=== PATIENT | female | born 1945 | race Caucasian/White ===

== ENCOUNTER 2019-10-05 13:21 | Inpatient (IN) ==
[2019-10-05] MEDS ORDERED: ONDANSETRON INJ 2 MG/ML 2 ML VIAL IV PRN (15:43)
[2019-10-05] MEDS ORDERED: ACETAMINOPHEN 325 MG TAB PO PRN (15:43)
[2019-10-05] MEDS ORDERED: MoRPHine SULFATE 2 MG/ML CARP IV PRN (15:43)
[2019-10-05] MEDS ORDERED: MAGNESIUM HYDROXIDE SUSP 30 ML UDC PO PRN (15:43)
[2019-10-05] MEDS ORDERED: ALUMINUM/MAGNESIUM SUSP 30 ML UDC PO PRN (15:43)
[2019-10-05] MEDS ORDERED: POLYETHYLENE (MIRALAX) 17 GM PACK PO PRN (15:43)
[2019-10-05] MEDS ORDERED: NITROGLYCERIN SL 0.4 MG/TAB TAB SL PRN (15:43)
[2019-10-05] MEDS ORDERED: PATIENT'S HEIGHT AND/OR WEIGHT NEEDED SCH (16:00)
[2019-10-05] MEDS ORDERED: Heparin IV Low Dose WITH Bolus IV STA (16:09)
[2019-10-05] MEDS ORDERED: HEPARIN SODIUM/DEXTROSE 25,000 UNITS/500 ML BAG IV SCH (16:15)
[2019-10-05 16:16] LABS: Basophils # (auto) 0.03 K/uL (0-0.2); Basophils % (auto) 0.3 %; Eosinophils # (auto) 0.02 K/uL (0-0.5); Eosinophils % (auto) 0.2 %; Hematocrit (blood only) 45.2 % (37-47); Immature Granulocytes # (auto) 0.02 K/uL (0.00-0.02); Immature Granulocytes % (auto) 0.2 %; Lymphocytes # (auto) 1.98 K/uL (1.2-3.4); Lymphocytes % (auto) 19.8 %; Mean Corpuscular Hemoglobin 29.7 pg (25-34); Mean Corpuscular Volume 89.5 fL (80-100); Mean Platelet Volume 9.5 fL (7.4-10.4); Monocytes # (auto) 0.62 K/uL (0.11-0.59); Monocytes % (auto) 6.2 %; Neutrophils # (auto) 7.33 K/uL (1.4-6.5); Neutrophils % (auto) 73.3 %; Platelet Count 231 K/uL (130-400); RDW Coefficient of Variation 13.5 % (11.5-14.5); Red Blood Count 5.05 M/uL (4.2-5.4)
[2019-10-05 16:27] LABS: INR 1.1 (0.9-1.1); Partial Thromboplastin Time 28.6 Seconds (21.0-31.0); Prothrombin Time 11.2 Seconds (9.0-12.0)
[2019-10-05 16:31] LABS: Mean Corpuscular Hgb Conc 33.2 g/dL (32-36)
[2019-10-05 16:34] LABS: BUN Creatinine Ratio 17.3 (10-20); Calcium 8.7 mg/dl (8.5-10.1); Creatinine Clr Calc Pharmacy 72.4 ml/min; Est GFR (African American) 90.4; Magnesium 2.2 mg/dl (1.8-2.4); Potassium 3.9 mmol/L (3.5-5.1)
[2019-10-05 16:39] LABS: Troponin I 2.04 ng/ml (0-0.045)
--- NOTE | 2019-10-05 16:40 | History & Physical Report ---
Date of Service October 05, 2019 Assessment & Plan (1) NSTEMI (non-ST elevated myocardial infarction): Increasing troponin and dynamic EKG changes with chest pain new at rest this morning. On arrival in [facility] telemetry she is having severity 3/10 chest pain, no change with nitroglycerin given. Improvement with this deep pain with morphine, although she is still having ongoing arm " weakness" and chest pain mainly on palpation. ASA (324mg given at [place]), Plavix 300mg (as discussed with Dr Almodovar) will defer further dosing until after cardiac cath, metoprolol tartrate 25mg PO BID, atorvastatin 40mg PO QPM Started on IV low dose heparin drip with bolus HbA1c and lipid fasting panel in a.m. Consult cardiology - discussed with Dr Almodovar and due to ongoing chest pain patient will be seen tonight although her "deep pain" appears to have resolved with morphine given (2) Costochondritis: Difficult to ascertain NSTEMI pain vs. costochondritis but appears to be having both. In setting of NSTEMI will avoid NSAIDs and she can take acetam inophen currently. (3) Fibromyalgia: On no routine medication for this (4) DVT prophylaxis: Heparin IV drip as above Admission and Anticipated Discharge Date Admission Date: October 05, 2019 History of Present Illness Chief Complaint: Chest pain Primary Care Provider: Avtar Grider Tyesha Santiago is a 74 year old female with no past cardiac history who presents as a direct admission from [facility] ER with chest pain. Difficult to ascertain history from patient due to circumstantial and at times some tangential answers. She appears to be having at least two different types of chest pain but both have been going on since March this year without any significant trauma. She describes a left substernal chest pain made worse with exertion which is relieved with rest, associated with shortness of breath. No radiation but associated bilateral upper arm weakness. Gradually getting worse since March however never had this at rest until today. No associated diaphoresis or nausea. Initially she had chest pain on exertion around 8 AM this morning. However became much more severe and " deep" around 9:30 AM, severity 8/10 at which point it also occurred at rest and did not go away since then. She reports having aspirin and nitroglycerin at [place] but is unsure whether this helped her pain. Nitroglycerin caused neck pain and frontal headache. This pain had been treated as MSK pain by her PCP due to reproducibility of chest pain on exam. She has an additional chest pain and neck pain which is been going on for the same of time. This is worse on palpation. She has ongoing chiropractor treatments for this which appears to be helping. She finds it very difficult to distinguish this pain from more cardiac sounding pain above. However the cardiac pain appears to be a " deeper" pain associated with her arm "weakness" which is different from the pain reproduced on palpation. She went to [place] ER on advice of her family and troponin was elevated at 0.2 therefore transferred to [facility] due to no cardiology cover at [facility]. She is a non-smoker, no diabetes, no known hyperlipidemia, no hypertension. Significant family history of her father having an aortic aneurysm repair. Her mother and father have had heart disease and congestive heart failure although she thinks this started in their 60s. No cough, fever, chills, loss of taste or smell. No known COVID-19 exposure. Allergies Allergy/AdvReac Type Severity Reaction Status Date / Time diclofenac Allergy Unknown Verified 10/05/19 16:50 latex Allergy Unknown Verified 10/05/19 16:50 clarithromycin [From Biaxin] Allergy Throat Verified 10/05/19 16:50 closes shut coal tar [From Laila Oil] Allergy Verified 10/05/19 16:50 doxycycline Allergy Thickening Verified 10/05/19 16:50 of the tongue erythromycin base Allergy Muscle pain Verified 10/05/19 16:50 Iodinated Contrast Media Allergy Hives Verified 10/05/19 16:50 ketoprofen [From Orudis] Allergy Vomiting, Verified 10/05/19 16:50 headache nabumetone [From Relafen] Allergy Verified 10/05/19 16:50 nitrofurantoin Allergy Muscle pain Verified 10/05/19 16:50 promethazine Allergy Verified 10/05/19 16:50 prednisone AdvReac Unknown Verified 10/05/19 16:50 acetaminophen AdvReac Dizziness Verified 10/05/19 16:50 [From Darvocet-N 100] - giddy aspirin [From Percodan] AdvReac Dizziness, Verified 10/05/19 16:50 vomiting cephalexin AdvReac sores in Verified 10/05/19 16:50 mouth codeine AdvReac Dizziness Verified 10/05/19 16:50 fexofenadine [From Rupal-D] AdvReac Restless, Verified 10/05/19 16:50 cannot sleep, cramps oxycodone AdvReac Chest Pain Verified 10/05/19 16:50 Penicillins AdvReac Vomiting, Verified 10/05/19 16:50 dizziness piroxicam AdvReac Shortness Verified 10/05/19 16:50 of breath propoxyphene AdvReac Dizziness Verified 10/05/19 16:50 [From Darvocet-N 100] - giddy pseudoephedrine AdvReac Restless, Verified 10/05/19 16:50 [From Rupal-D] cannot sleep, cramps Sulfa (Sulfonamide AdvReac Vomiting Verified 10/05/19 16:50 Antibiotics) Home Medications Home Medications Medication Instructions Recorded Confirmed Type B Complex 1 tab PO DAILY 10/05/19 10/05/19 History [place]-3 1 tab PO DAILY 10/05/19 10/05/19 History Vitamin D3 5,000 units PO DAILY 10/05/19 10/05/19 History acetaminophen 325 mg PO QID PRN 10/05/19 10/05/19 History calcium lactate 2 tab PO DAILY 10/05/19 10/05/19 History cyclobenzaprine 10 mg PO Q8H PRN 10/05/19 10/05/19 History Past Med/Surg History Medical History Arthritis Chronic sinusitis Fibromyalgia History of bladder cancer 10-15 years ago Kidney stones Surgical History History of appendectomy 38 yo History of cholecystectomy 38 yo History of tonsillectomy Family History Father Heart disease Myocardial infarction Onset in 60s Mother Heart disease Onset in 60s, CHF Social History Preferred Language: Mauritanian Communication Ability: Effective Rn Assessment Required: No Beliefs That Will Affect Care: None marital status: Current Living Situation: Family current occupational status: retired Other Information That Helps Us Care for You: No Feels Safe at Home: Yes Safety Concerns: Feels Safe At This Time Smoking Status: Never smoker Hx Alcohol Use: No Hx Substance Use: No Review of Systems Review of Systems: All systems reviewed & are unremarkable except as noted in HPI & below Physical Exam Constitutional: well developed and + obese; + not well nourished and no acute distress Eyes: PERRL, conjunctivae normal, anicteric sclerae ENMT: external ear and nose normal, oropharynx normal Neck: trachea midline, no thyromegaly Respiratory: normal respiratory effort, lungs clear to auscultation Cardiovascular: Rate/Rhythm: regular rate and regular rhythm Heart Sounds: no murmur Extremities: normal capillary refill and + pedal edema (trace b/l equal); no calf tenderness Gastrointestinal (Abdomen): normal bowel sounds, soft, nontender, no hepatosplenomegaly Musculoskeletal: no cyanosis or clubbing, extremities motor strength 5/5 Skin: no rashes, warm and dry Neurologic: moves all extremities and awake; no focal motor deficits and not confused Motor/Sensory: no sensory deficit Psychiatric: A+Ox3, euthymic affect Genitourinary: no CVA tenderness Lymphatic: no cervical or axillary lymphadenopathy Results & Data Results & Data ([facility]) Diagnostic Findings XR chest 1V portable IMPRESSION: Negative chest. ECG Indication: chest pain Rate (beats per minute): 80 Findings: + acute ischemic change Comparison ECG Date: from Change: the following changes noted (more prominant TWI present in anterolateral leads) Code Status & VTE Plan Code Status DNR/DNI as discussed with the patient with son present VTE Prophylaxis Plan VTE Prophylaxis will be ordered: Yes Critical Care Time Critical Care Time: Yes Total Critical Care Time: 45 Patient has a life-threatening condition. Ongoing chest pain requiring ongoing management with multiple re-evaluations and ongoing discussions with cardiology. PG Care Time/CCT Total # of Minutes Spent Total Time Spent with Patient: Total time spent is greater than 50% in coordination of care (as documented) at patient's floor/unit and/or counseling patient: Critical Care Time: Yes Total Critical Care Time: 45 Coding Level of Care Code 19029 Initial Inpt Care Lvl 3 Diagnoses NSTEMI (non-ST elevated myocardial infarction) I21.4 Costochondritis M94.0 Fibromyalgia M79.7 DVT prophylaxis Z29.9 Additional Codes Critical Care Time - Critical Care Time: Yes ([id number])
[2019-10-05] MEDS ORDERED: NITROGLYCERIN SL 0.4 MG/TAB TAB ONE (16:41)
[2019-10-05] MEDS ORDERED: METOPROLOL TARTRATE 25 MG TAB PO STA (16:59)
[2019-10-05] MEDS ORDERED: HEPARIN IV BOLUS 4,000 UNITS in SYRINGE 0 ML IV ONE (17:00)
[2019-10-05] MEDS: PATIENT'S ALLERGY INFO NEEDS ENTERED SCH (17:33)
--- NOTE | 2019-10-05 17:44 | XRay Report ---
XR chest 1V portable CLINICAL HISTORY: Chest pain pain COMPARISON STUDY: No previous studies for comparison. FINDINGS: The bones soft tissues and hemidiaphragms are normal. The cardiomediastinal silhouette is n ormal. The lungs are clear. The pulmonary vasculature is normal. IMPRESSION: Negative chest. ACT 112: Negative or not required by law. The above report was generated using voice recognition software. It may contain grammatical, syntax or spelling errors. Electronically signed by: Glen Ward M.D. 10/05/2019 5:43 PM
[2019-10-05] MEDS ORDERED: CLOPIDOGREL BISULFATE 300 MG TAB PO STA (18:48)
[2019-10-05] MEDS ORDERED: lisinopriL 5 MG TAB PO ONE (20:42)
--- NOTE | 2019-10-05 20:51 | Cardiology Consultation ---
Date of Consultation October 05, 2019 Assessment & Plan (1) NSTEMI (non-ST elevated myocardial infarction): (2) Hypertension: ASSESSMENT/PLAN: 1. NSTEMI: She has elevated troponins, abnormal ECG, and progressively worsening anginal symptoms. We discussed the diagnosis. Continue heparin drip. Continue aspirin 81 mg daily. Plavix 300 mg x1 was recommended and given by hospitalist service. Agree with high-intensity statin therapy. Agree with beta-jennifer. Given elevated blood pressure will also add ELIZABETH-inhibitor. NPO after midnight for cardiac catheterization. Risks and benefits were discussed with her. She was made aware that CT surgery is not available at this facility. She is agreeable to undergo diagnostic coronary angiography and PCI, if deemed appropriate. Echocardiogram pending. 2. Hypertension: She does not have a formal diagnosis of hypertension but her blood pressure has been elevated here, currently more significantly. Will add lisinopril 5 mg daily to her regimen, especially given her presentation of STEMI. 3. Disposition: Cardiology will continue to follow. Patient care has been discussed with Dr. Flores, of the admitting service. Highly complex medical issues. Thank you for allowing me to participate in the care of your patient. Please call for any other questions or concerns. Sincerely, Mustapha Almodovar M.D. History of Present Illness Reason for Consultation: NSTEMI Requesting Physician: Dr. Flores Attending Physician: Les Hale, History of Present Illness Ms. Santiago is a pleasant 74-year-old female with a history significant for fibromyalgia and bladder cancer status post resection who was transferred here from [facility] for chest discomfort and abnormal troponin. She states that for several months, probably back in March, she has been experiencing intermittent exertional intrascapular tightness with bilateral chest pain that can radiate to her shoulders and bilateral arms. This is also accompanied by shortness of breath at times. The symptoms have been worsening to the point where even walking around her house now causes symptoms. This morning when she woke up she developed symptoms walking to her kitchen which then subsided with rest. She then sat down to watch the news and symptoms for the first time occurred at rest. She called EMS and was instructed to take aspirin 81 mg times for which she did. EMS then gave her nitroglycerin which improved her pain but caused a headache symptoms eventually resolved but then again occurred. While here, she was given more nitroglycerin and also morphine. She is no longer experiencing these anginal symptoms. She admits that she has other pains that she has had chronically related to fibromyalgia but assures me that she has no further symptoms currently similar to the symptoms that she has been experiencing with exertion and then once again this morning while at rest. She denies syncope, near-syncope, palpitations, edema, or bleeding such as melena, hematochezia, or hematuria. She states that she has borderline lipid issues but has chosen to not take statin therapy. She sees her PCP regularly. Review of systems: As above. Review of systems otherwise negative/unremarkable. Family history: Father in his 70s. He had a AAA. Mother had CHF and in her 80s. No known premature CAD. Social history: She denies tobacco, alcohol, or drug abuse. She is and he has since . She has a son and a daughter, both of which live with her. 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 She is unaccompanied today. Allergies Allergy/AdvReac Type Severity Reaction Status Date / Time diclofenac Allergy Unknown Verified 10/05/19 16:50 latex Allergy Unknown Verified 10/05/19 16:50 clarithromycin [From Biaxin] Allergy Throat Verified 10/05/19 16:50 closes shut coal tar [From Laila Oil] Allergy Verified 10/05/19 16:50 doxycycline Allergy Thickening Verified 10/05/19 16:50 of the tongue erythromycin base Allergy Muscle pain Verified 10/05/19 16:50 Iodinated Contrast Media Allergy Hives Verified 10/05/19 16:50 ketoprofen [From Orudis] Allergy Vomiting, Verified 10/05/19 16:50 headache nabumetone [From Relafen] Allergy Verified 10/05/19 16:50 nitrofurantoin Allergy Muscle pain Verified 10/05/19 16:50 promethazine Allergy Verified 10/05/19 16:50 prednisone AdvReac Unknown Verified 10/05/19 16:50 acetaminophen AdvReac Dizziness Verified 10/05/19 16:50 [From Darvocet-N 100] - giddy aspirin [From Percodan] AdvReac Dizziness, Verified 10/05/19 16:50 vomiting cephalexin AdvReac sores in Verified 10/05/19 16:50 mouth codeine AdvReac Dizziness Verified 10/05/19 16:50 fexofenadine [From Rupal-D] AdvReac Restless, Verified 10/05/19 16:50 cannot sleep, cramps oxycodone AdvReac Chest Pain Verified 10/05/19 16:50 Penicillins AdvReac Vomiting, Verified 10/05/19 16:50 dizziness piroxicam AdvReac Shortness Verified 10/05/19 16:50 of breath propoxyphene AdvReac Dizziness Verified 10/05/19 16:50 [From Darvocet-N 100] - giddy pseudoephedrine AdvReac Restless, Verified 10/05/19 16:50 [From Rupal-D] cannot sleep, cramps Sulfa (Sulfonamide AdvReac Vomiting Verified 10/05/19 16:50 Antibiotics) Home Medications Home Medications Medication Instructions Recorded Confirmed Type B Complex 1 tab PO DAILY 10/05/19 10/05/19 History [place]-3 1 tab PO DAILY 10/05/19 10/05/19 History Vitamin D3 5,000 units PO DAILY 10/05/19 10/05/19 History acetaminophen 325 mg PO QID PRN 10/05/19 10/05/19 History calcium lactate 2 tab PO DAILY 10/05/19 10/05/19 History cyclobenzaprine 10 mg PO Q8H PRN 10/05/19 10/05/19 History Patient History Medical History Arthritis Chronic sinusitis Fibromyalgia History of bladder cancer 2009 s/p resection Kidney stones Surgical History History of appendectomy 38 yo History of cholecystectomy 38 yo History of tonsillectomy Family History (Updated 10/05/19 @ 20:49 by Alejandro Almodovar MD) Father AAA (abdominal aortic aneurysm) Mother Heart failure Social History Preferred Language: Greek Communication Ability: Effective Gift Wrapper Required: No Beliefs That Will Affect Care: None marital status: Current Living Situation: Family current occupational status: retired Other Information That Helps Us Care for You: No Feels Safe at Home: Yes Safety Concerns: Feels Safe At This Time Smoking Status: Never smoker Hx Alcohol Use: No Hx Substance Use: No Physical Exam Physical Exam: Gen.: No acute distress. Alert and oriented. HEENT: Anicteric sclera. Neck: No JVD. No bruits. Normal carotid upstrokes bilaterally. Cardiac: PMI was nonpalpable. No ventricular heave. Regular rate and rhythm. Normal S1-S2. No murmurs, rubs, or gallops. Pulmonary: Clear to auscultation bilaterally without wheezes, rales, or rhonchi. Abdomen: Soft, nontender, nondistended, with normoactive bowel sounds. No bruits noted. Extremities: 2+ radial pulses bilaterally. 2+ posterior tibialis pulses bilaterally. No edema or cyanosis. Psychiatric: Affect appears appropriate. Chest: Her presenting chest discomfort is not reproducible on exam. Results & Data ([facility]) Vital Signs (Past 12 Hours) Vital Signs Temp Pulse Resp BP BP Pulse Ox 10/05/19 19:48 36.6 C 65 16 187/99 H 94 10/05/19 18:13 36.7 C 82 14 127/74 95 10/05/19 15:48 36.9 C 90 18 144/79 H 92 Laboratory Results Laboratory Results - last 24 hr 10/05/19 10/05/19 10/05/19 15:57 15:57 16:03 WBC 10.00 RBC 5.05 Hgb 15.0 Hct 45.2 MCV 89.5 MCH 29.7 MCHC 33.2 RDW Std Deviation 44.0 RDW Coeff of Marcelino 13.5 Plt Count 231 MPV 9.5 Immature Gran % (Auto) 0.2 Neut % (Auto) 73.3 Lymph % (Auto) 19.8 Sevier % (Auto) 6.2 Eos % (Auto) 0.2 Baso % (Auto) 0.3 Neut # (Auto) 7.33 H Lymph # (Auto) 1.98 Sevier # (Auto) 0.62 H Eos # (Auto) 0.02 Baso # (Auto) 0.03 Immature Gran # (Auto) 0.02 PT 11.2 INR 1.1 APTT 28.6 PTT Ratio 1.0 Sodium 139 Potassium 3.9 Chloride 108 H Carbon Dioxide 25 Anion Gap 6.0 BUN 13 Creatinine 0.75 Est Cr Clr Drug Dosing 72.4 Est GFR ( Amer) 90.4 Est GFR (Non-Af Amer) 78.0 BUN/Creatinine Ratio 17.3 Glucose 93 Calcium 8.7 Magnesium 2.2 Troponin I 2.040 H* 10/05/19 20:17 WBC RBC Hgb Hct MCV MCH MCHC RDW Std Deviation RDW Coeff of Marcelino Plt Count MPV Immature Gran % (Auto) Neut % (Auto) Lymph % (Auto) Sevier % (Auto) Eos % (Auto) Baso % (Auto) Neut # (Auto) Lymph # (Auto) Sevier # (Auto) Eos # (Auto) Baso # (Auto) Immature Gran # (Auto) PT INR APTT PTT Ratio Sodium Potassium Chloride Carbon Dioxide Anion Gap BUN Creatinine Est Cr Clr Drug Dosing Est GFR ( Amer) Est GFR (Non-Af Amer) BUN/Creatinine Ratio Glucose Calcium Magnesium Troponin I Pending Diagnostic Findings ECG personally reviewed: ECG 10/05/2019 at 7:51 p.m.: NSR 64 bpm. Inferior infarct. Anterior T-wave inversion. ECG 10/05/2019 at 4:05 p.m.: NSR 80 bpm. Anterior T-wave inversion. Inferior infarct. Chest x-ray 10/05/2019: No acute findings per Radiology. Clear lungs. Telemetry personally reviewed: Sinus rhythm. No arrhythmia. Medications Administered Current Inpatient Medications Acetaminophen (Tylenol) 650 mg PO Q4H PRN PRN Reason: Pain or Fever Stop: 11/04/19 15:42 Al Hydrox/Mg Hydrox/Simethicone (Maalox) 15 ml PO Q4H PRN PRN Reason: Dyspepsia Stop: 11/04/19 15:42 Aspirin (Ecotrin Ectab) 81 mg PO QAM [facility] Stop: 11/05/19 08:59 Atorvastatin Calcium (Lipitor) 40 mg PO QPM [facility] Stop: 11/04/19 20:59 Last Admin: 10/05/19 20:45 Dose: 40 mg Documented by: Heparin Sodium/Dextrose (Heparin Sodium/Dextrose) 25,000 units in 500 mls @ 17 mls/hr IV .Q24H [facility]; Protocol Stop: 11/04/19 16:14 Last Titration: 10/05/19 19:01 Dose: 850 units/hr, 17 mls/hr Documented by: Lisinopril (Zestril) 5 mg PO QAM [facility] Stop: 11/05/19 08:59 Magnesium Hydroxide (Milk Of Magnesia) 30 ml PO Q12H PRN PRN Reason: Constipation Stop: 11/04/19 15:42 Metoprolol Tartrate (Lopressor) 25 mg PO BID [facility] Stop: 11/05/19 08:59 Morphine Sulfate (Morphine Sulfate) 2 mg IV Q30M PRN PRN Reason: Chest Pain Stop: 10/19/19 15:42 Last Admin: 10/05/19 17:23 Dose: 2 mg Documented by: Nitroglycerin (Nitrostat) 0.4 mg SL UD PRN PRN Reason: Chest Pain Stop: 11/04/19 15:42 Ondansetron HCl (Zofran) 4 mg IV Q6H PRN PRN Reason: Nausea Stop: 11/04/19 15:42 Last Admin: 10/05/19 17:24 Dose: 4 mg Documented by: Polyethylene Glycol (Miralax Powder Packet) 17 gm PO DAILY PRN PRN Reason: Constipation Stop: 11/04/19 15:42 PG Care Time/CCT Total # of Minutes Spent Total Time Spent with Patient: Total time spent is greater than 50% in coordination of care (as documented) at patient's floor/unit and/or counseling patient: Coding Level of Care Code 49205 Initial Inpt Care Lvl 3 Diagnoses NSTEMI (non-ST elevated myocardial infarction) I21.4 Hypertension I10
[2019-10-05] MEDS ORDERED: ATORVASTATIN 40 MG TAB PO SCH (21:00)
[2019-10-05 23:08] LABS: Partial Thromboplastin Ratio 1.4; Partial Thromboplastin Time 39.5 Seconds (21.0-31.0)
[2019-10-05] MEDS ORDERED: HEPARIN IV BOLUS 4,500 UNITS in SYRINGE 0 ML IV ONE (23:45)
[2019-10-06 06:33] LABS: Basophils # (auto) 0.03 K/uL (0-0.2); Basophils % (auto) 0.3 %; Eosinophils # (auto) 0.13 K/uL (0-0.5); Eosinophils % (auto) 1.5 %; Hematocrit (blood only) 43.5 % (37-47); Hemoglobin 13.9 g/dL (12.0-16.0); Immature Granulocytes # (auto) 0.02 K/uL (0.00-0.02); Immature Granulocytes % (auto) 0.2 %; Lymphocytes # (auto) 3.18 K/uL (1.2-3.4); Lymphocytes % (auto) 35.9 %; Mean Corpuscular Hemoglobin 28.8 pg (25-34); Mean Corpuscular Volume 90.1 fL (80-100); Mean Platelet Volume 9.5 fL (7.4-10.4); Monocytes # (auto) 0.61 K/uL (0.11-0.59); Monocytes % (auto) 6.9 %; Neutrophils % (auto) 55.2 %; Platelet Count 223 K/uL (130-400); RDW Coefficient of Variation 13.7 % (11.5-14.5); RDW Standard Deviation 45.6 fL (36.4-46.3); Red Blood Count 4.83 M/uL (4.2-5.4); White Blood Count 8.87 K/uL (4.8-10.8)
[2019-10-06 06:46] LABS: Calcium 8.5 mg/dl (8.5-10.1); Creatinine Clr Calc Pharmacy 70.5 ml/min; Est GFR (African American) 87.5; Est GFR (Non-African American) 75.5; Potassium 3.8 mmol/L (3.5-5.1)
[2019-10-06 06:52] LABS: Partial Thromboplastin Ratio 2.1; Troponin I 1.58 ng/ml (0-0.045)
--- NOTE | 2019-10-06 06:58 | Electrocardiogram Report ---
Test Reason : Blood Pressure : / mmHG Vent. Rate : 080 BPM Atrial Rate : 080 BPM P-R Int : 170 ms QRS Dur : 080 ms QT Int : 348 ms P-R-T Axes : 047 -29 -14 degrees QTc Int : 401 ms Normal sinus rhythm Minimal voltage criteria for LVH, may be normal variant ( R in aVL ) Inferior infarct , age undetermined T wave abnormality, consider anterior ischemia Abnormal ECG No previous ECGs available Confirmed by Alejandro Almodovar ([id number]) on 10/06/2019 6:58:23 AM Referred By: NO PCP Confirmed By:Alejandro Almodovar
[2019-10-06 07:10] LABS: Partial Thromboplastin Time 57.5 Seconds (21.0-31.0)
[2019-10-06 07:34] LABS: Estimated Average Glucose 117 mg/dl; Hemoglobin A1C 5.7 % (4.5-5.6)
--- NOTE | 2019-10-06 07:42 | Hospitalist Progress Note ---
Date of Service October 06, 2019 Assessment & Plan (1) NSTEMI (non-ST elevated myocardial infarction): Increasing troponin, Dynamic EKG changes, chest pain ASA (324mg given at [place]), Plavix 300mg, Dr Almodovar /Dr Small performed LHC with intervention to LAD. CX, RCA, metoprolol tartrate 25mg PO BID, atorvastatin 40mg PO QPM Started on IV heparin drip prior to procedure will be on atorvastatin 80 (2) Costochondritis: Difficult to ascertain NSTEMI pain vs. costochondritis but appears to be having both. In setting of NSTEMI will avoid NSAIDs and she can take acetaminophen currently. (3) Fibromyalgia: On no routine medication for this (4) DVT prophylaxis: Heparin IV drip as above (5) Dyslipidemia: (6) CAD (coronary artery disease): (7) Hypertension: She does not have a formal diagnosis of hypertension but her blood pressure was initially elevated while here. Blood pressure has been well controlled after initiation of beta-jennifer and ELIZABETH-inhibitor. Continue these medications. Admission and Anticipated Discharge Date Admission Date: October 05, 2019 Subjective Patient seen post procedure she was in no particular distress Review of Systems Review of Systems: No continued distress no headache, blurry or double vision no speech or swallowing issues no recurrent chest pain, pressure or palpitations no shortness of breath, cough or wheezes no abdominal pain, nausea or vomiting, diarrhea or constipation no dysuria, hematuria or frequency no focal joint pain or swelling no back pain, CVA tenderness or radicular pain no focal signs of weakness or numbness or altered sensation Results & Data Results & Data ([facility]) Vital Signs (Past 12 Hours) Vital Signs Temp Pulse Pulse Resp BP Pulse Ox 10/06/19 04:01 98.4 F 72 20 120/64 92 10/06/19 00:26 76 10/05/19 23:45 98.1 F 70 18 120/62 92 10/05/19 19:48 97.9 F 65 16 187/99 H 94 PG Care Time/CCT Total # of Minutes Spent Total Time Spent with Patient: Total time spent is greater than 50% in coordination of care (as documented) at patient's floor/unit and/or counseling patient: Coding Level of Care Code 14693 Subseq Hosp Care Lvl 2 Diagnoses NSTEMI (non-ST elevated myocardial infarction) I21.4 Costochondritis M94.0 Fibromyalgia M79.7 DVT prophylaxis Z29.9 Dyslipidemia E78.5 CAD (coronary artery disease) I25.10 Hypertension I10
[2019-10-06] MEDS: ASPIRIN 81 MG ECTAB PO SCH (08:32)
[2019-10-06] MEDS: METOPROLOL TARTRATE 25 MG TAB PO SCH ×2 (08:32→20:00)
[2019-10-06] MEDS: lisinopriL 5 MG TAB PO SCH (08:33)
[2019-10-06] MEDS ORDERED: NiCARDipine HCL INJ 2.5 MG/ML 10 ML AMP ONE (08:54)
[2019-10-06] MEDS ORDERED: fentaNYL citrate 100 MCG/2 ML VIAL ONE ×3 (08:55→12:42)
[2019-10-06] MEDS ORDERED: MIDAZOLAM HCL 1 MG/ML 2ML VIAL ONE ×3 (08:56→10:48)
[2019-10-06] MEDS ORDERED: NITROGLYCERIN/D5W 100MCG/ML 20ML SYR ONE (08:56)
[2019-10-06] MEDS ORDERED: CLOPIDOGREL BISULFATE 75 MG TAB PO SCH (09:00)
[2019-10-06] MEDS ORDERED: DiphenhydrAMINE HCL 50 MG/ML VIAL ONE (09:34)
[2019-10-06] MEDS ORDERED: methylPREDNISolone 125 MG/2 ML VIAL ONE (09:34)
--- NOTE | 2019-10-06 09:43 | Pre Anesthesia Assessment ---
Date of Service October 06, 2019 Pre Sedation Assessment Vital Signs Temp Pulse Pulse Resp BP BP Pulse Ox 10/06/19 09:07 37.1 C 73 16 136/75 91 10/06/19 07:10 36.6 C 70 16 127/75 92 10/06/19 04:01 36.9 C 72 20 120/64 92 10/06/19 00:26 76 10/05/19 23:45 36.7 C 70 18 120/62 92 10/05/19 19:48 36.6 C 65 16 187/99 H 94 10/05/19 18:13 36.7 C 82 14 127/74 95 10/05/19 15:48 36.9 C 90 18 144/79 H 92 Cardiovascular RRR, no murmur, no edema Respiratory normal respiratory effort, lungs clear to auscultation Pre-Sedation Airway Assessment Smoking Status: Never smoker Short, Thick Neck: Yes Thyromental Distance: < 3.5 Finger Breadths Oral Cavity: + WNL Mallampati Class: III ASA: ASA3 NPO Status Date of Last Intake of Fluids: 10/05/19 Time of Last Intake of Fluids: 22:30 Date of Last Intake of Solid Food: 10/05/19 Time of Last Intake of Solid Foods: 22:30 Procedure Planning Contraindications for Sedation: none Current Medications Reviewed: Yes Notes The planned sedation has been discussed with the patient. Informed Consent was obtained. I have identified the patient, determined the appropriateness of sedation and have assessed the patient immediately prior to the procedure. All medicine(s) and interventions are by my order.
[2019-10-06] MEDS: HEPARIN (PORCINE) 1000 UNIT/ML 10 ML (CATH LAB USE ONLY) ONE ×2 (09:57→12:00)
--- NOTE | 2019-10-06 11:11 | Cardiac Catheterization ---
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 Cardiac Status Clinical evaluation leading to the procedure CAD Presenation: Non STEMI Anginal Classification: CCS IV Heart Failure: No Cardiogenic Shock within 24 Hours: No Cardiac Arrest within 24 Hours: No Imaging Studies Past 6 Months: Yes Stress Studies Past 6 Months: No Standard Exercise Test: No Stress Echocardiogram: No Stress Testing w/SPECT MPI: No Cardiac CTA: No Coronary Anatomy Dominant: Right Left Ventricular Angiography EF (%): n/a Diagnostic Physicians Name: Alejandro Almodovar MD Status: Elective Closure Device Percutaneous Entry Location: Femoral (closure to be determined by interventional cardiology following PCI.) Recommendations: PCI without planned CABG Cardiac Cath Procedure Full Procedure Date October 06, 2019 Pre-Procedure Diagnosis Pre-Procedure Diagnosis: Non STEMI (She has been experiencing worsening exertional intrascapular and chest pain for the past several months. Yesterday, symptoms occurred at rest. She has elevated troponins, anterior T wave inversions, and apical wall motion abnormality on echo.) AUC Score AUC Score: 9 Post-Procedure Diagnosis Post-Procedure Diagnosis: Severe CAD and Elevated Intracardiac Pressures Procedure(s) Performed Procedure(s) Performed: Coronary Angiography, Left Heart Cath and Ultrasound Guided Vascular Access Content Strategy Lead Alejandro Almodovar MD National Account Manager(s) Carly Estimated Blood Loss Estimated Blood Loss: < 25 ml Medication(s) Medication(s): Fentanyl, Lidocaine 1% and Versed Summary of Findings Procedures: 1. Coronary angiography 2. Left heart catheterization 3. Ultrasound guidance for arterial access 4. Moderate sedation Procedural notes: 1. Initial attempts at right radial access were unsuccessful. The right radial artery was easily cannulated with access needle, but despite good blood flow, wire was unable to be sufficiently advanced for sheath placement. The decision was made to use the right femoral artery. Coronary angiography: 1. Left main coronary artery: LMCA without significant CAD. 2. Left anterior descending: Calcifications noted within the proximal to mid LAD. Ostial LAD approximately 50%. Early proximal LAD 95+% with ELOISE II flow. Mid LAD 30%, at the bifurcation of a large D1. Proximal D1 50 to 70%. Small D2. 3. Circumflex: Large caliber vessel. Medium caliber OM1 with ostial 50 to 70%. Mid to distal circumflex extends as a small caliber vessel. Mid circumflex into large OM 2 with diffuse 80% stenosis with ELOISE-3 flow. Left to left collaterals noted filling small vessels in the lateral distribution, probable small OM branches. 4. Right coronary artery: The RCA is large and dominant. Calcifications noted throughout the proximal to mid RCA. Proximal RCA diffuse 50 to 70% stenosis, extending to a focal mid RCA 95% stenosis. Distal RCA diffuse 40%. Large PDA and PL branches without significant CAD. Right to left collaterals noted. ELOISE-3 flow noted throughout the RCA. Left heart catheterization: 1. Left ventriculography was not performed. 2. No significant aortic stenosis. Peak to peak gradient 0 mmHg. 3. Moderately elevated LVEDP; 20 mmHg. Ultrasound guidance for arterial access: 1. The right femoral artery was visualized under ultrasound. Access needle was guided under ultrasound to achieve access, without known complication. Moderate sedation: 1. Sedation start time: 9:48 AM 2. Sedation end time: 10:35 AM Impression: 1. Severe multivessel CAD including proximal LAD with ELOISE II flow (culprit vessel). 2. Severe CAD involving RCA and circumflex/OM. 3. Left to left and right to left collaterals. 4. Moderately elevated left-sided filling pressures. 5. No significant aortic stenosis. Plan: 1. Images were reviewed with interventional cardiology, Dr. Small, who plans on attempting PCI of LAD. 2. Further consideration of PCI of other vessels to be determined. 3. Optimize medical therapy. Hemodynamics Rest Ao:: 79/38 Final Ao: 118/52 LV: 112/2/20 Recommendations Recommendations: PCI without planned CABG Specimens Specimens: None Radiation Exposure (mGy) 758 mGy. Fluoro time 2.3 min. Contrast (mls) 40 ml Procedural Complication(s) None Disposition remained in label cutter for PCI attempt I attest to the content of the Intraoperative Record and any orders documented therein. Any exceptions are noted below. BuildFax Card Cath Procedure Codes Cardiac Catheterization Procedure 1: Cardiovascular Cath Procedures: 04993 Coronaries and LHC (+/-LV) Therapeutic Services & Ancillary Proc Procedure 1: Cardiovascular Tx and Anc Procedures: 20708 Ultrasonic Guidance Vascular Access Moderate Sedation Procedure 1: Sedation/Anesthesia: 39656 Mod Sedation by the same physician;Init15 Min Child Age 5 & Up Procedure 2: Sedation/Anesthesia: 48345 Mod Sedation by the same physician; Ea [id number] Minutes Procedure 3: Sedation/Anesthesia: 22204 Mod Sedation by the same physician; Ea [id number] Minutes PG Care Time/CCT Total # of Minutes Spent Total Time Spent with Patient: Total time spent is greater than 50% in coordination of care (as documented) at patient's floor/unit and/or counseling patient:
[2019-10-06] MEDS ORDERED: HEPARIN (PORCINE) 1000 UNIT/ML 10 ML (CATH LAB USE ONLY) ONE (12:18)
--- NOTE | 2019-10-06 12:30 | Cardiology Progress Note ---
Date of Service October 06, 2019 Assessment & Plan (1) NSTEMI (non-ST elevated myocardial infarction): (2) Dyslipidemia: (3) CAD (coronary artery disease): (4) Hypertension: ASSESSMENT/PLAN: 1. NSTEMI: Did have some rest chest discomfort this morning. We once again discussed cardiac catheterization and she was agreeable. Her son was agreeable. She underwent cardiac catheterization after this morning's visit and was found to have multivessel CAD with plan to undergo PCI of the LAD, and possibly RCA plus or minus circumflex/OM. Continue dual anti-platelet therapy. Continue beta-jennifer. Continue ELIZABETH-inhibitor. Continue high-intensity statin therapy. 2. CAD: Multivessel CAD as noted, including proximal LAD, mid RCA, and mid circumflex/OM. PCI to be attempted of the LAD and possibly other vessels, as per Interventional Cardiology. Continue medical therapy as noted. 3. Hypertension: She does not have a formal diagnosis of hypertension but her blood pressure was initially elevated while here. Blood pressure has been well controlled after initiation of beta-jnenifer and ELIZABETH-inhibitor. Continue these medications. 4. Dyslipidemia: LDL is severely elevated. Will increase atorvastatin to 80 mg daily. She had not been on a statin therapy as an outpatient. 5. Disposition: Cardiology will continue to follow. Patient care communicated with primary hospitalist, Dr. Matias. Admission and Anticipated Discharge Date Admission Date: October 05, 2019 Subjective She was seen this morning at approximately 8:30 a.m.. She had an episode of bilateral chest discomfort this morning that was short- lived but otherwise has not had any further symptoms similar to her angina. She denies syncope, near-syncope, shortness of breath, palpitations, edema, or bleeding. She admits to feeling dizzy. Her son, Brock, was present at the bedside. Review of systems: As above. Physical Exam Physical Exam: Gen.: No acute distress. Alert and oriented. HEENT: Anicteric sclera. Neck: No JVD. Cardiac: No ventricular heave. Regular rate and rhythm. Normal S1-S2. No murmurs, rubs, or gallops. Pulmonary: Clear to auscultation bilaterally without wheezes, rales, or rhonchi. Abdomen: Soft, nontender, nondistended, with normoactive bowel sounds. No bruits noted. Extremities: 2+ radial pulses bilaterally. 2+ posterior tibialis pulses bilaterally. No edema or cyanosis. Psychiatric: Affect appears appropriate. Results & Data ([facility]) Vital Signs (Past 12 Hours) Vital Signs Temp Pulse Pulse Resp BP Pulse Ox 10/06/19 09:07 37.1 C 73 16 136/75 91 10/06/19 07:10 36.6 C 70 16 127/75 92 10/06/19 04:01 36.9 C 72 20 120/64 92 10/06/19 00:26 76 Intake & Output 10/04/19 10/05/19 10/06/19 10/07/19 06:59 06:59 06:59 06:59 Intake Total 407.950 / 407.950 Output Total 450 / 450 Balance -42.050 / -42.050 Weight 94.7 kg Laboratory Results Laboratory Results - last 24 hr 10/05/19 10/05/19 10/05/19 15:57 15:57 16:03 WBC 10.00 RBC 5.05 Hgb 15.0 Hct 45.2 MCV 89.5 MCH 29.7 MCHC 33.2 RDW Std Deviation 44.0 RDW Coeff of Marcelino 13.5 Plt Count 231 MPV 9.5 Immature Gran % (Auto) 0.2 Neut % (Auto) 73.3 Lymph % (Auto) 19.8 Kane % (Auto) 6.2 Eos % (Auto) 0.2 Baso % (Auto) 0.3 Neut # (Auto) 7.33 H Lymph # (Auto) 1.98 Kane # (Auto) 0.62 H Eos # (Auto) 0.02 Baso # (Auto) 0.03 Immature Gran # (Auto) 0.02 PT 11.2 INR 1.1 APTT 28.6 PTT Ratio 1.0 Activ Coag Time Kaolin Sodium 139 Potassium 3.9 Chloride 108 H Carbon Dioxide 25 Anion Gap 6.0 BUN 13 Creatinine 0.75 Est Cr Clr Drug Dosing 72.4 Est GFR ( Amer) 90.4 Est GFR (Non-Af Amer) 78.0 BUN/Creatinine Ratio 17.3 Glucose 93 Estimat Average Glucose Hemoglobin A1c Calcium 8.7 Magnesium 2.2 Troponin I 2.040 H* Triglycerides Cholesterol LDL Cholesterol, Calc VLDL Cholesterol, Calc HDL Cholesterol Cholesterol/HDL Ratio 10/05/19 10/05/19 10/05/19 20:17 22:47 22:47 WBC RBC Hgb Hct MCV MCH MCHC RDW Std Deviation RDW Coeff of Marcelino Plt Count MPV Immature Gran % (Auto) Neut % (Auto) Lymph % (Auto) Kane % (Auto) Eos % (Auto) Baso % (Auto) Neut # (Auto) Lymph # (Auto) Kane # (Auto) Eos # (Auto) Baso # (Auto) Immature Gran # (Auto) PT INR APTT 39.5 H PTT Ratio 1.4 Activ Coag Time Kaolin Sodium Potassium Chloride Carbon Dioxide Anion Gap BUN Creatinine Est Cr Clr Drug Dosing Est GFR ( Amer) Est GFR (Non-Af Amer) BUN/Creatinine Ratio Glucose Estimat Average Glucose Hemoglobin A1c Calcium Magnesium Troponin I 2.840 H* 2.530 H* Triglycerides Cholesterol LDL Cholesterol, Calc VLDL Cholesterol, Calc HDL Cholesterol Cholesterol/HDL Ratio 10/06/19 10/06/19 10/06/19 06:17 06:17 06:17 WBC 8.87 RBC 4.83 Hgb 13.9 Hct 43.5 MCV 90.1 MCH 28.8 MCHC 32.0 RDW Std Deviation 45.6 RDW Coeff of Marcelino 13.7 Plt Count 223 MPV 9.5 Immature Gran % (Auto) 0.2 Neut % (Auto) 55.2 Lymph % (Auto) 35.9 Kane % (Auto) 6.9 Eos % (Auto) 1.5 Baso % (Auto) 0.3 Neut # (Auto) 4.90 Lymph # (Auto) 3.18 Kane # (Auto) 0.61 H Eos # (Auto) 0.13 Baso # (Auto) 0.03 Immature Gran # (Auto) 0.02 PT INR APTT PTT Ratio Activ Coag Time Kaolin Sodium 140 Potassium 3.8 Chloride 107 Carbon Dioxide 27 Anion Gap 6.0 BUN 14 Creatinine 0.77 Est Cr Clr Drug Dosing 70.5 Est GFR ( Amer) 87.5 Est GFR (Non-Af Amer) 75.5 BUN/Creatinine Ratio 18.0 Glucose 109 H Estimat Average Glucose 117 Hemoglobin A1c 5.7 H Calcium 8.5 Magnesium Troponin I 1.580 H* Triglycerides 150 Cholesterol 270 H LDL Cholesterol, Calc 200 VLDL Cholesterol, Calc 30 HDL Cholesterol 40 Cholesterol/HDL Ratio 7 10/06/19 10/06/19 10/06/19 06:17 10:39 11:35 WBC RBC Hgb Hct MCV MCH MCHC RDW Std Deviation RDW Coeff of Marcelino Plt Count MPV Immature Gran % (Auto) Neut % (Auto) Lymph % (Auto) Kane % (Auto) Eos % (Auto) Baso % (Auto) Neut # (Auto) Lymph # (Auto) Kane # (Auto) Eos # (Auto) Baso # (Auto) Immature Gran # (Auto) PT INR APTT 57.5 H* PTT Ratio 2.1 Activ Coag Time Kaolin 120 235 H Sodium Potassium Chloride Carbon Dioxide Anion Gap BUN Creatinine Est Cr Clr Drug Dosing Est GFR ( Amer) Est GFR (Non-Af Amer) BUN/Creatinine Ratio Glucose Estimat Average Glucose Hemoglobin A1c Calcium Magnesium Troponin I Triglycerides Cholesterol LDL Cholesterol, Calc VLDL Cholesterol, Calc HDL Cholesterol Cholesterol/HDL Ratio Diagnostic Findings Telemetry personally reviewed: Sinus rhythm. No arrhythmia. Echocardiogram personally reviewed from 10/06/2019: Preliminary review demonstrated normal left ventricular systolic function. Apical wall motion abnormality. No severe valvular abnormalities noted. Formal review to follow. Following this morning visit, she underwent cardiac catheterization. Cardiac catheterization 10/06/2019: Coronary angiography: 1. Left main coronary artery: LMCA without significant CAD. 2. Left anterior descending: Calcifications noted within the proximal to mid LAD. Ostial LAD approximately 50%. Early proximal LAD 95+% with ELOISE II flow. Mid LAD 30%, at the bifurcation of a large D1. Proximal D1 50 to 70%. Small D2. 3. Circumflex: Large caliber vessel. Medium caliber OM1 with ostial 50 to 70%. Mid to distal circumflex extends as a small caliber vessel. Mid circumflex into large OM 2 with diffuse 80% stenosis with ELOISE-3 flow. Left to left collaterals noted filling small vessels in the lateral distribution, probable small OM branches. 4. Right coronary artery: The RCA is large and dominant. Calcifications noted throughout the proximal to mid RCA. Proximal RCA diffuse 50 to 70% stenosis, extending to a focal mid RCA 95% stenosis. Distal RCA diffuse 40%. Large PDA and PL branches without significant CAD. Right to left collaterals noted. ELOISE-3 flow noted throughout the RCA. Left heart catheterization: 1. Left ventriculography was not performed. 2. No significant aortic stenosis. Peak to peak gradient 0 mmHg. 3. Moderately elevated LVEDP; 20 mmHg. Medications Administered Current Inpatient Medications Acetaminophen (Tylenol) 650 mg PO Q4H PRN PRN Reason: Pain or Fever Stop: 11/04/19 15:42 Al Hydrox/Mg Hydrox/Simethicone (Maalox) 15 ml PO Q4H PRN PRN Reason: Dyspepsia Stop: 11/04/19 15:42 Aspirin (Ecotrin Ectab) [facility] [place] Stop: 11/05/19 08:59 Last Admin: 10/06/19 08:32 Dose: 81 mg Documented by: Atorvastatin Calcium (Lipitor) 80 mg PO QPM [facility] Stop: 11/05/19 20:59 Clopidogrel Bisulfate (Plavix) 75 [facility] [place] Stop: 11/05/19 08:59 Last Admin: 10/06/19 08:32 Dose: 75 mg Documented by: Heparin Sodium/Dextrose (Heparin Sodium/Dextrose) 25,000 units in 500 mls @ 20 mls/hr IV .Q24H [facility]; Protocol Stop: 11/04/19 16:14 Last Titration: 10/05/19 23:17 Dose: 1,000 units/hr, 20 mls/hr Documented by: Lisinopril (Zestril) [facility] [place] Stop: 11/05/19 08:59 Last Admin: 10/06/19 08:33 Dose: 5 mg Documented by: Magnesium Hydroxide (Milk Of Magnesia) 30 ml PO Q12H PRN PRN Reason: Constipation Stop: 11/04/19 15:42 Metoprolol Tartrate (Lopressor) 25 mg PO BID [facility] Stop: 11/05/19 08:59 Last Admin: 10/06/19 08:32 Dose: 25 mg Documented by: Morphine Sulfate (Morphine Sulfate) 2 mg IV Q30M PRN PRN Reason: Chest Pain Stop: 10/19/19 15:42 Last Admin: 10/05/19 17:23 Dose: 2 mg Documented by: Nitroglycerin (Nitrostat) 0.4 mg SL UD PRN PRN Reason: Chest Pain Stop: 11/04/19 15:42 Ondansetron HCl (Zofran) 4 mg IV Q6H PRN PRN Reason: Nausea Stop: 11/04/19 15:42 Last Admin: 10/05/19 17:24 Dose: 4 mg Documented by: Polyethylene Glycol (Miralax Powder Packet) 17 gm PO DAILY PRN PRN Reason: Constipation Stop: 11/04/19 15:42 PG Care Time/CCT Total # of Minutes Spent Total Time Spent with Patient: Total time spent is greater than 50% in coordination of care (as documented) at patient's floor/unit and/or counseling patient: Coding Level of Care Code 62332 Subseq Hosp Care Lvl 3 Diagnoses NSTEMI (non-ST elevated myocardial infarction) I21.4 Dyslipidemia E78.5 CAD (coronary artery disease) I25.10 Hypertension I10
--- NOTE | 2019-10-06 13:03 | Post Anesthesia Assessment ---
Date of Service October 06, 2019 Post Sedation Assessment Vital Signs Temp Pulse Pulse Resp BP BP Pulse Ox 10/06/19 09:07 98.8 F 73 16 136/75 91 10/06/19 07:10 97.9 F 70 16 127/75 92 10/06/19 04:01 98.4 F 72 20 120/64 92 10/06/19 00:26 76 10/05/19 23:45 98.1 F 70 18 120/62 92 10/05/19 19:48 97.9 F 65 16 187/99 H 94 10/05/19 18:13 98.1 F 82 14 127/74 95 10/05/19 15:48 98.4 F 90 18 144/79 H 92 Recovery Score Activity: Moves 4 extremities Respiration: Deep Breath/Cough Circulation: +/-20% PreAnes Value Consciousness: Fully Awake Oxygen Saturation: O2 needed for >90% Discharge Sedation Level of Care: Fast Track Phase II Post Sedation Plan On clinical assessment, the patient appears to have tolerated the sedation without complications. Patient is recovering as anticipated. Patient will continue to be monitored by nursing and may be discharged when sedation discharge criteria are met per below protocol. Upon Completions of procedure up to 15 minutes continue every 5 minute vital signs and the P.A.R. score; then discharge to a Phase I or Fast Track to Phase II per the following guidelines: * Discharge Patient to appropriate Phase II area if PAR is 8 or greater or return to pre- procedure baseline. The post - procedure orders will be as directed. * If PAR score is less than 8 or not return to pre-procedure baseline then patient will follow Phase I monitoring till PAR is reached for Phase II. The Phase I may be done in procedure room or may call to secure a Phase I area. * If naloxone or flumazenil are used for reversal, hold in Phase I for continued monitoring from when last reversal dose was given for a minimum of 60 minutes or longer pending the nurse and/or physician discretion of patient condition before discharge to Phase II. Please call the Sedation Physician to re-evaluate and complete post-note for discharge to Phase II area. Do NOT discharge from procedure sedation or Phase 1 until post- sedation evalu ation note is complete by procedure /sedation MD Sedation Discharge Instructions to be given to the patient at discharge to home.
--- NOTE | 2019-10-06 13:06 | Cardiac Catheterization ---
ACC Data: Diplomatic Officer Cardiac Status Clinical evaluation leading to the procedure CAD Presenation: Non STEMI Anginal Classification: CCS IV Heart Failure: No Cardiogenic Shock within 24 Hours: No Cardiac Arrest within 24 Hours: No Imaging Studies Past 6 Months: Yes Stress Studies Past 6 Months: No Diagnostic Physicians Name: Satish Small MD Status: Elective Closure Device Percutaneous Entry Location: Radial Closure Device: Radial Band Recommendations: PCI without planned CABG PCI Indication: PCI for high risk Non-JOSE ALBERTO Lesion Segment Name: ostial LAD Culprit Artery: Yes Stenosis Prior to Rx (%): 99 Chronic Total Occlusion: No IVUS: No FFR: No Pre-Procedure ELOISE Flow: 2 Previously Treated Lesion: No Lesion Complexity: Non-High/Non-C Lesion Length (mm): 12 Thrombus Present: No Bifurcation Lesion: Yes Guidewire Across Lesion: Stenosis Post-Procedure (%): 0 Post-Procedure ELOISE Flow: 3 Devices(s) Deployed: Yes Yes Lesion #2 Segment Name: mid circumflex Culprit Artery: No Stenosis Prior to Rx (%): 0 Chronic Total Occlusion: No IVUS: No FFR: No Previously Treated Lesion: No Lesion Complexity: Non-High/Non-C Lesion Length (mm): 15 Thrombus Present: No Bifurcation Lesion: No Guidewire Across Lesion: Yes Stenosis Post-Procedure (%): 0 Post-Procedure ELOIES Flow: 3 Devices(s) Deployed: Yes Intraprocedure Events Significant Disection: No Perforation: No Cardiac Cath Procedure Full Procedure Date October 06, 2019 Pre-Procedure Diagnosis Pre-Procedure Diagnosis: Non STEMI (She has been experiencing worsening exertional intrascapular and chest pain for the past several months. Yesterday, symptoms occurred at rest. She has elevated troponins, anterior T wave inversions, and apical wall motion abnormality on echo.) AUC Score AUC Score: 8 Post-Procedure Diagnosis Post-Procedure Diagnosis: Severe CAD and Successful PCI Procedure(s) Performed Procedure(s) Performed: Drug Eluting Stent Telecommunications Operator Satish Small MD Ammunition And Explosives Handler(s) Carly Estimated Blood Loss Estimated Blood Loss: < 25 ml Medication(s) Medication(s): Fentanyl, Heparin, Lidocaine 1%, Nicardipine, Nitroglycerin and Versed Medication(s): Ticagrelor Summary of Findings Indication: High risk NSTEMI Access: 6 Fr right radial artery Catheters: EBU 3.5 guide, JR4 guide Findings: For full details of patient's coronary angiography please see cath report dictated by Dr. Almodovar. Briefly, patient found to have severe multi-vessel disease including a 99% ostial LAD stenosis with ELOISE II flow, 80% mid circumflex and 90% mid RCA steno sis Decision to proceed with PCI. -- PCI -- Antithrombotic therapy: Heparin, ticagrelor Procedure: Left main cannulated with EBU 3.5 guide BMW wire passed across ostial LAD lesion into distal vessel Travel Accommodation Inspector 50 wire placed into distal circumflex Ostial LAD lesion predilated with 2.5 compliant balloon Dilated lesion stented with 3.0 x 12 mm Xience Carlotta Stent post-dilated with 3.5 noncompliant balloon IC vasodilators administered for spasm BMW wire removed from LAD Mid circumflex dilated with 2.5 balloon Dilated mid circumflex lesion stented with 2.5 x 18 mm [place] drug-eluting stent, delivered with the aid of a guideliner Stent postdilated with 2.5 NC balloon Post procedure ELOISE 3 flow in LAD, circumflex, stents well expanded with minimal residual stenosis and no apparent cardiac complications. RCA then cannulated with JR4 guide BMW passed across mid RCA lesion into distal vessel Mid RCA dilated with 2.5 and 3.0 balloons Focal high-grade stenosis dilated appropriately with compliant balloons Earlymid RCA heavily calcified moderate stenosis recalcitrant to compliant balloons, 3.0 angiosculpt and 3.5 NC balloon to high atmospheres. Post balloon inflation concern for vessel dissection and proceeded with stenting. Proximal to mid RCA stented with 3.5 x 38 mm [place] drug-eluting stent Stent progressively postdilated with 4.0 NC balloon Post procedure ELOISE-3 flow. High-grade latemid RCA stenosis well-expanded. Residual 40% underexpansion/stenosis in earlymid segment. Arterial Closure: TR band Summary: 1. Successful PCI of ostial LAD stenosis with single drug-eluting stent (3.0 x 12 Xience Carlotta post-dilated with 3.5 NC). 2. Successful PCI of mid circumflex with single drug-eluting stent (2.5 x 18 mm [place]). 3. PCI of proximal to mid RCA with single drug-eluting stent (3.5 x 38 mm Shin; post-dilated with 4.0 NC. Residual 40% early-mid stenosis). Recommendations: To PCU for continued monitoring Loaded with ticagrelor 180 mg in Diplomatic Officer In the setting of ostial LAD, multivessel disease and underexpanded mid RCA stent recommend indefinite DAPT Continue statin, and ASCVD risk factor modification Consult cardiac Rehab Hemodynamics Rest Ao:: 121/61/86 Final Ao: 151/68/103 LV: -- Recommendations Recommendations: PCI without planned CABG Specimens Specimens: None Radiation Exposure (mGy) 5600 Contrast (mls) 175 Drains Drains: None Anesthesia Moderate Procedural Complication(s) None Disposition PCU I attest to the content of the Intraoperative Record and any orders documented therein. Any exceptions are noted below. [facility] Card Cath Procedure Codes Moderate Sedation Procedure 1: Sedation/Anesthesia: 60124 Mod Sedation by a different physician ;Init15 Min Child Age 5&Up Procedure 2: Sedation/Anesthesia: 14177 Mod Sedation by a different physician;Ea Additional 15 Minutes Stenting Procedure 1: Cardiovascular Stent Procedures: 01197 Perc transcatheter placement of intracoronary stent(s), with ang Procedure 2: Cardiovascular Stent Procedures: 72043 Ea addl branch of a major coronary artery Procedure 3: Cardiovascular Stent Procedures: 72642 Ea addl branch of a major coronary artery PG Care Time/CCT Total # of Minutes Spent Total Time Spent with Patient: Total time spent is greater than 50% in coordination of care (as documented) at patient's floor/unit and/or counseling patient:
[2019-10-06] MEDS ORDERED: TICAGRELOR 90 MG TAB PO ONE (13:07)
[2019-10-06] MEDS ORDERED: SODIUM CHLORIDE 0.9% 1000ML 1,000 ML IV SCH (17:45)
--- NOTE | 2019-10-06 18:59 | XCELERA ---
[id number]
[2019-10-06] MEDS ORDERED: ATORVASTATIN 40 MG TAB PO SCH (21:00)
--- NOTE | 2019-10-06 22:37 | Electrocardiogram Report ---
Test Reason : Blood Pressure : / mmHG Vent. Rate : 064 BPM Atrial Rate : 064 BPM P-R Int : 176 ms QRS Dur : 078 ms QT Int : 400 ms P-R-T Axes : 047 -29 -15 degrees QTc Int : 412 ms Normal sinus rhythm Minimal voltage criteria for LVH, may be normal variant Inferior infarct (cited on or before 05-OCT-2019) T wave abnormality, consider anterior ischemia Abnormal ECG When compared with ECG of 05-OCT-2019 16:05, No significant change was found Confirmed by Alejandro Almodovar ([id number]) on 10/06/2019 10:37:39 PM Referred By: NO PCP Confirmed By:Alejandro Almodovar
[2019-10-07] MEDS: TICAGRELOR 90 MG TAB PO SCH ×2 (02:06→11:50)
[2019-10-07 06:56] LABS: Partial Thromboplastin Ratio 0.9; Partial Thromboplastin Time 25.5 Seconds (21.0-31.0)
[2019-10-07] MEDS: lisinopriL 5 MG TAB PO SCH (08:15)
[2019-10-07] MEDS: ASPIRIN 81 MG ECTAB PO SCH (08:15)
[2019-10-07] MEDS: METOPROLOL TARTRATE 25 MG TAB PO SCH (08:15)
--- NOTE | 2019-10-07 15:55 | Cardiology Progress Note ---
Date of Service October 07, 2019 Assessment & Plan (1) NSTEMI (non-ST elevated myocardial infarction): (2) Dyslipidemia: (3) CAD (coronary artery disease): (4) Hypertension: ASSESSMENT/PLAN: 1. NSTEMI: Doing well s/p multivessel PCI. No further angina. Cardiac rehab recommended on d/c. Continue dual anti-platelet therapy. Continue beta- jennifer. Continue ELIZABETH-inhibitor. Continue high-intensity statin therapy. 2. CAD s/p multivessel PCI: (proximal LAD, mid RCA, and mid circumflex/OM). ASA 81 mg daily indefinitely. Interventional cardiology recommends ticagrelor indefinitely due to residual RCA stenosis due to calcium burden after stent deployment. Continue betablocker, ELIZABETH inhibitor, statin. NTG prn for angina. 3. Hypertension: Blood pressure mildly elevated. Continue new antihypertensive meds and titrate as appropriate. 4. Dyslipidemia: LDL is severely elevated. Continue atorvastatin to 80 mg daily. She had not been on a statin therapy as an outpatient. 5. Disposition: Ok to d/c from cardiac standpoint. She wants to follow up in [place] office, which will be arranged for her. Patient care communicated with primary hospitalist, Dr. Mata. Admission and Anticipated Discharge Date Admission Date: October 05, 2019 Subjective Underwent multivessel PCI yesterday. No angina. Had atypical chest pain in bed for a few minutes early this morning. Has ambulated in room and after our visit, in the hallway (3 laps) without angina. She denies SOB at rest. She said her 3 laps is much more than she could walk prior to admission. No bleeding or cath site bleeding/oozing. No edema, palpitations, or syncope. Her son is at the bedside. ROS: as above. Physical Exam Physical Exam: Gen.: No acute distress. Alert and oriented. HEENT: Anicteric sclera. Neck: No JVD. Cardiac: No ventricular heave. Regular rate and rhythm. Normal S1-S2. No murm urs, rubs, or gallops. Pulmonary: Clear to auscultation bilaterally without wheezes, rales, or rhonchi. Abdomen: Soft, nontender, nondistended, with normoactive bowel sounds. No bruits noted. Extremities: Right femoral cath site is clean, dry and intact without erythema or discharge. Trace lower extremity edema. No cyanosis. Psychiatric: Affect appears appropriate. Chest: Tender bilateral chest near shoulders, reproducing her CP described in HPI. Results & Data ([facility]) Vital Signs (Past 12 Hours) Vital Signs Temp Pulse Resp BP Pulse Ox 10/07/19 12:16 36.7 C 70 18 142/69 H 94 10/07/19 08:25 36.7 C 82 18 146/67 H 94 Laboratory Results Laboratory Results - last 24 hr 10/07/19 06:26 APTT 25.5 PTT Ratio 0.9 Diagnostic Findings Telemetry personally reviewed: sinus rhythm with 11 beat run of atrial tachycardia yesterday evening. ECG personally reviewed: ECG 10/07/19 at 1449: NSR at 71 bpm. Anterior and inferior T wave inversion. Cardiac cath 10/06/19: Coronary angiography: 1. Left main coronary artery: LMCA without significant CAD. 2. Left anterior descending: Calcifications noted within the proximal to mid LAD. Ostial LAD approximately 50%. Early proximal LAD 95+% with ELOISE II flow. Mid LAD 30%, at the bifurcation of a large D1. Proximal D1 50 to 70%. Small D2. 3. Circumflex: Large caliber vessel. Medium caliber OM1 with ostial 50 to 70%. Mid to distal circumflex extends as a small caliber vessel. Mid circumflex into large OM 2 with diffuse 80% stenosis with ELOISE-3 flow. Left to left collaterals noted filling small vessels in the lateral distribution, probable small OM branches. 4. Right coronary artery: The RCA is large and dominant. Calcifications noted throughout the proximal to mid RCA. Proximal RCA diffuse 50 to 70% stenosis, extending to a focal mid RCA 95% stenosis. Distal RCA diffuse 40%. Large PDA and PL branches without significant CAD. Right to left collaterals noted. ELOISE-3 flow noted throughout the RCA. PCI 10/06/19: 1. Successful PCI of ostial LAD stenosis with single drug-eluting stent (3.0 x 12 Xience Carlotta post-dilated with 3.5 NC). 2. Successful PCI of mid circumflex with single drug-eluting stent (2.5 x 18 mm [place]). 3. PCI of proximal to mid RCA with single drug-eluting stent (3.5 x 38 mm Shin; post-dilated with 4.0 NC. Residual 40% early-mid stenosis). PG Care Time/CCT Total # of Minutes Spent Total Time Spent with Patient: Total time spent is greater than 50% in coord ination of care (as documented) at patient's floor/unit and/or counseling patient: Coding Level of Care Code 59181 Subseq Hosp Care Lvl 3 Diagnoses NSTEMI (non-ST elevated myocardial infarction) I21.4 Dyslipidemia E78.5 CAD (coronary artery disease) I25.10 Hypertension I10
[2019-10-07 16:36] LABS: Basophils # (auto) 0.01 K/uL (0-0.2); Basophils % (auto) 0.1 %; Eosinophils # (auto) 0.05 K/uL (0-0.5); Eosinophils % (auto) 0.4 %; Hematocrit (blood only) 42.2 % (37-47); Hemoglobin 13.6 g/dL (12.0-16.0); Immature Granulocytes # (auto) 0.05 K/uL (0.00-0.02); Immature Granulocytes % (auto) 0.4 %; Lymphocytes # (auto) 2.75 K/uL (1.2-3.4); Lymphocytes % (auto) 20.2 %; Mean Corpuscular Hemoglobin 29.1 pg (25-34); Mean Corpuscular Hgb Conc 32.2 g/dL (32-36); Mean Corpuscular Volume 90.2 fL (80-100); Mean Platelet Volume 9.5 fL (7.4-10.4); Monocytes # (auto) 1.32 K/uL (0.11-0.59); Monocytes % (auto) 9.7 %; Neutrophils # (auto) 9.46 K/uL (1.4-6.5); Neutrophils % (auto) 69.2 %; Platelet Count 234 K/uL (130-400); RDW Coefficient of Variation 13.7 % (11.5-14.5); RDW Standard Deviation 45.1 fL (36.4-46.3); Red Blood Count 4.68 M/uL (4.2-5.4); White Blood Count 13.64 K/uL (4.8-10.8)
[2019-10-07 16:55] LABS: BUN Creatinine Ratio 21.1 (10-20); Calcium 8.4 mg/dl (8.5-10.1); Creatinine Clr Calc Pharmacy 54.5 ml/min; Est GFR (African American) 63.8; Est GFR (Non-African American) 55.1; Potassium 3.7 mmol/L (3.5-5.1)
--- NOTE | 2019-10-07 17:31 | Discharge Summary ---
Date of Service October 07, 2019 Admission HPI Per Admitting Provider Tyesha Santiago is a 74 year old female with no past cardiac history who presents as a direct admission from [facility] with chest pain. Difficult to ascertain history from patient due to circumstantial and at times some tangential answers. She appears to be having at least two different types of chest pain but both have been going on since March this year without any significant trauma. She describes a left substernal chest pain made worse with exertion which is relieved with rest, associated with shortness of breath. No radiation but associated bilateral upper arm weakness. Gradually getting worse since March however never had this at rest until today. No associated diaphoresis or nausea. Initially she had chest pain on exertion around 8 AM this morning. However became much more severe and " deep" around 9:30 AM, severity 8/10 at which point it also occurred at rest and did not go away since then. She reports having aspirin and nitroglycerin at [place] but is unsure whether this helped her pain. Nitroglycerin caused neck pain and frontal headache. This pain had been treated as MSK pain by her PCP due to reproducibility of chest pain on exam. She has an additional chest pain and neck pain which is been going on for the same of time. This is worse on palpation. She has ongoing chiropractor treatments for this which appears to be helping. She finds it very difficult to distinguish this pain from more cardiac sounding pain above. However the cardiac pain appears to be a " deeper" pain associated with her arm "weakness" which is different from the pain reproduced on palpation. She went to [facility] on advice of her family and troponin was elevated at 0.2 therefore transferred to [facility] due to no cardiology cover at [facility]. She is a non-smoker, no diabetes, no known hyperlipidemia, no hypertension. Significant family history of her father having an aortic aneurysm repair. Her mother and father have had heart disease and congestive heart failure although she thinks this started in their 60s. No cough, fever, chills, loss of taste or smell. No known COVID-19 exposure. Principal Diagnosis Pt states she feels much improved. She does have some chest pressure laterally, but it is different from the pain she was having prior to her cath. No SOB. No issues with PO. She is ambulating without issue. Pt denies fever, abd pain, n/v/c/d, LE pain or swelling. 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 Pt tells me she had muscle pain and cramping in the past with crestor use. She is tolerating lipitor so far. Discharge Exam Constitutional WD/WN, vitals as above Eyes normal visual stephens by confrontation and + anicteric sclerae Neck normal visual inspection and trachea midline Respiratory normal respiratory effort, lungs clear to auscultation Cardiovascular Rate/Rhythm: regular rate and regular rhythm Gastrointestinal (Abdomen) Inspection/Auscultation: abdomen not distended Percussion/Palpation: abdomen soft; abdomen nontender Musculoskeletal Head/Neck/Chest: normocephalic and head atraumatic Skin no rashes, warm and dry Neurologic awake; not confused Speech / Cognition: normal speech Psychiatric A+Ox3, euthymic affect Discharge Data Allergies Allergy/AdvReac Type Severity Reaction Status Date / Time diclofenac Allergy Unknown Verified 10/05/19 16:50 latex Allergy Unknown Verified 10/05/19 16:50 clarithromycin [From Biaxin] Allergy Throat Verified 10/05/19 16:50 closes shut coal tar [From Laila Oil] Allergy Verified 10/05/19 16:50 doxycycline Allergy Thickening Verified 10/05/19 16:50 of the tongue erythromycin base Allergy Muscle pain Verified 10/05/19 16:50 Iodinated Contrast Media Allergy Hives Verified 10/05/19 16:50 ketoprofen [From Orudis] Allergy Vomiting, Verified 10/05/19 16:50 headache nabumetone [From Relafen] Allergy Verified 10/05/19 16:50 nitrofurantoin Allergy Muscle pain Verified 10/05/19 16:50 promethazine Allergy Verified 10/05/19 16:50 prednisone AdvReac Unknown Verified 10/05/19 16:50 acetaminophen AdvReac Dizziness Verified 10/05/19 16:50 [From Darvocet-N 100] - giddy aspirin [From Percodan] AdvReac Dizziness, Verified 10/05/19 16:50 vomiting cephalexin AdvReac sores in Verified 10/05/19 16:50 mouth codeine AdvReac Dizziness Verified 10/05/19 16:50 fexofenadine [From Rupal-D] AdvReac Restless, Verified 10/05/19 16:50 cannot sleep, cramps oxycodone AdvReac Chest Pain Verified 10/05/19 16:50 Penicillins AdvReac Vomiting, Verified 10/05/19 16:50 dizziness piroxicam AdvReac Shortness Verified 10/05/19 16:50 of breath propoxyphene AdvReac Dizziness Verified 10/05/19 16:50 [From Darvocet-N 100] - giddy pseudoephedrine AdvReac Restless, Verified 10/05/19 16:50 [From Rupal-D] cannot sleep, cramps Sulfa (Sulfonamide AdvReac Vomiting Verified 10/05/19 16:50 Antibiotics) Consultations 10/05/19 16:35 Consult Cardiology Routine 10/06/19 17:32 Consult Cardiac Rehabilitation Routine Procedures Performed Operation Date: 10/06/19 09:00 Actual Procedures p Cineradiography w/Routine Exam - Brandin Small MD s Cath, Left with Cors and Vent - Alejandro Almodovar MD p Drug Eluting Stent SGl Vessel - Brandin Small MD s Drug Eluting Stent each ADDTL Vessel - Brandin Small MD s Ultrasound Vascular Access - Brandin Small MD s Placement Art Occlusive Device - Brandin Small MD Ordered Studies 10/06/19 09:03 CL Cath Imgs for PACS use only Routine Hospital Course (1) NSTEMI (non-ST elevated myocardial infarction): Increasing troponin, Dynamic EKG changes, chest pain Pt was transferred from [facility] for interventional cardiology on 10/04 ASA (324mg given at [place]), Plavix 300mg, Dr Almodovar /Dr Small performed LHC with stents to LAD, mid-circumflex, RCA on 10/05 will be on atorvastatin 80, advised CoQ10 use given need for statin in this setting and hx of statin intolerance Planning for indefinite DAPT with aspirin 81mg and brilinta (2) Costochondritis: Difficult to ascertain NSTEMI pain vs. costochondritis but appears to be having both. In setting of NSTEMI will avoid NSAIDs and she can take acetaminophen currently. (3) Fibromyalgia: On no routine medication for this (4) DVT prophylaxis: Heparin IV drip during admission (5) Dyslipidemia: (6) CAD (coronary artery disease): (7) Hypertension: She does not have a formal diagnosis of hypertension but her blood pressure was initially elevated while here. Blood pressure has been well controlled after initiation of beta-jennifer and ELIZABETH-inhibitor. Continue these medications. Total Time Total Time Spent Total Time Spent (In Minutes): >30 Total Time Includes: Examination of the Patient, Discharge Planning, Medication Reconciliation, Communication With Other Providers and Other Discharge Plan Discharge Items Patient Disposition: Home - Self-Care Reason For Visit: CHEST PAIN Discharge Diagnosis: NSTEMI Activity: As commented below Activity Comment: As discussed with cardiology Non-emergency contact: Primary Care Provider and Freezer Person Call non-emergency contact if: you have any medication questions, your symptoms worsen and your pain is not controlled Follow-up/Referrals: Alejandro Almodovar MD [Physician] - Paramjit Chow MD [Primary Care Provider] - Diet: Heart Healthy Addtl Attending Provider Instructions: ACTIVITY RECOMMENDATIONS: It is common to feel weak and fatigue for a few days. * Do not drive or operate any motorized equipment for the next three days. * Limit stair usage (2 or 3 trips a day only) for the next three days. * Do not lift anything heavier than 10 pounds for the next three days. * Do not engage in vigorous exercise or any sports for the next five days. * You may shower the day after your procedure, but do not immerse the area for three days. Cleanse the site gently with soap and water. SPECIAL CARE INSTRUCTIONS: * You may replace the pressure dressing or band-aid the morning after the procedure. * After your procedure, it is normal to have a small bruise or small lump at the site. Examine your site daily for any change in the bruise or lump, redness, swelling, drainage or numbness. Notify your doctor if any change. BLEEDING: * If there is a small amount of bleeding at the site, lie down and apply firm pressure with a clean cloth for ten minutes. When the bleeding stops, lie quietly keeping the procedure limb straight for six hours. Notify your doctor as soon as possible. * If the bleeding does not stop after ten minutes or if there is a large amount of bleeding or spurting, call 911 immediately. Continue to lie down and hold firm pressure until help arrives. SKIN IRRITATION: * You may experience some redness and/or swelling in the area where radiation was administered. If any skin irritation occurs, please contact your family physician. FOLLOW UP VISIT: 1. Follow up with Dr. Walton in the [facility]iology office within the next few weeks. His office will call you with appointment time/date. Call [phone] with questions or concerns. Addtl Hydraulic Technician Provider Instructions: You mentioned that you have had issues with leg cramping/spasms when using statins (cholesterol medication) in the past. It is important that you continue to take the cholesterol medication due to your heart attack. You should start taking CoQ10 300mg per day. This will help to prevent the cramping/spasms that some people get with statin use. CoQ10 comes in 2 forms: ubiquinOL and ubiquinONE. Ubiquinol is the active and best form to take as it is already ready for your body to use. It will absorb better than ubiquinone. Due to this, ubiquinol can be a bit more expensive than ubiquinone, but it will be more effective for you to take the more expensive version. You can find this at most [employer], [employer], etc. You should take this with some sort of fat for best absorption: dairy products, olive oil, avocados will work for this. Pending Studies at Discharge: No Stand-Alone Forms: [facility], Smoking Cessation Medications and DC Order Prescriptions: New atorvastatin 40 mg Tablet 80 mg PO QPM Qty: 30 RF: 0 aspirin 81 mg Tablet,Delayed Release (Dr/Ec) 81 mg PO QAM Qty: 30 RF: 0 lisinopril [Zestril] 5 mg Tablet 5 mg PO QAM Qty: 30 RF: 0 metoprolol tartrate 25 mg Tablet 25 mg PO BID Qty: 60 RF: 0 Brilinta 90 mg Tablet 90 mg PO BID Qty: 60 RF: 0 Continued B Complex 1 tab PO DAILY RF: 0 acetaminophen 325 mg Tablet 325 mg PO QID PRN (Reason: Pain) RF: 0 [place]-3 1 tab PO DAILY RF: 0 Vitamin D3 5,000 units PO DAILY RF: 0 calcium lactate 648 mg 2 tab PO DAILY RF: 0 cyclobenzaprine 10 mg 10 mg PO Q8H PRN (Reason: Muscle Spasm) RF: 0 Discharge Orders: Discharge Order (Routine); Ordered 10/07/19 Ordered By: Birgit Mata Admission Data Admit Date/Time: 10/05/19 15:44 Attending Provider: Birgit Mata Admit Provider: Les Hale Primary Care Provider: Paramjit Chow Other Providers: Alejandro Almodovar. Other Interventions: Discharge Summary Assessment (RN) Last Done: 10/07/19 16:41 DC Date/Time DO NOT enter until pt leaves facility: 10/07/19 17:12 Coding Level of Care Code D/C Day Management >30 mins Diagnoses NSTEMI (non-ST elevated myocardial infarction) I21.4 Costochondritis M94.0 Fibromyalgia M79.7 DVT prophylaxis Z29.9 Dyslipidemia E78.5 CAD (coronary artery disease) I25.10 Hypertension I10
--- NOTE | 2019-10-08 05:09 | Electrocardiogram Report ---
Test Reason : Blood Pressure : / mmHG Vent. Rate : 071 BPM Atrial Rate : 071 BPM P-R Int : 166 ms QRS Dur : 082 ms QT Int : 392 ms P-R-T Axes : 056 -24 -76 degrees QTc Int : 425 ms Normal sinus rhythm Abnormal ECG When compared with ECG of 05-OCT-2019 19:51, T wave inversion now evident in Inferior leads T wave inversion more evident in Anterolateral leads Confirmed by Alejandro Almodovar ([id number]) on 10/08/2019 5:09:18 AM Referred By: REFERRED SELF Confirmed By:Alejandro Almodovar
== END 2019-10-07 17:12 | disposition home or self-care (01) | DRG 247 ==
LOC: 2W → SUATTDRO 15:44 → 2E 17:12

== ENCOUNTER 2025-01-11 12:02 | Observation (INO) ==
[2025-01-11 12:32] LABS: Hematocrit (blood only) 41.4 % (37.0-47.0); Hemoglobin 13.8 g/dl (12.0-16.0); Immature Granulocytes # (auto) 0.02 K/uL (0.01-0.20); Immature Granulocytes % (auto) 0.3 %; Mean Corpuscular Hemoglobin 28.7 pg (25.0-34.0); Mean Corpuscular Volume 86.1 fL (80.0-100.0); Platelet Count 234 K/uL (130-400); RDW Standard Deviation 41.4 fL (36.4-46.3); Red Blood Count 4.81 M/uL (4.20-5.40); White Blood Count 7.76 K/ul (4.8-10.8)
--- NOTE | 2025-01-11 12:34 | Emergency Department Note ---
Impression & Plan Unstable angina ED Provider Note NAME: JOHN LAMB AGE: 79 SEX: F : 1945 ARRIVES VIA: Ambulance INFORMANT: Patient, EMS ED PROVIDER(S): Devin Oliva DO CHIEF COMPLAINT: chest pain HPI: This is an 79-year-old female with the PMHx of CAD s/p PCI in 2019, hypertension, hyperlipidemia, obesity, fibromyalgia and GERD presenting to [facility] for further evaluation of Chest pain. Patient is accompanied by EMS who provide additional history. EMS reports that the patient has been reporting onset of chest pain with radiation to the shoulder blades and back since 01/05. They report that she was given sublingual nitroglycerin as well as a loading dose of aspirin. She has remained hemodynamically stable. Patient states this feels exactly similar to prior cardiovascular events. She states that today she developed numbness below the knees bilaterally. She states that this concerned her and led to emergency department visit. They deny fever or chills. No cough or congestion. She does endorse shortness of breath associated with her chest pain. They deny abdominal pain, nausea and vomiting. No urinary complaints. No recent changes in bowel movements. Patient denies recent changes in medications or OTC supplements. Patient offers no other complaints, today. ADDITIONAL HISTORY OBTAINED: Per HPI Chronic Medical/Social Conditions Affecting Care: Per HPI PAST MEDICAL HISTORY: See Below PAST SURGICAL HISTORY: See Below FAMILY HISTORY: See Below SOCIAL HISTORY: See Below HOME MEDICATIONS: See Below ALLERGIES: See Below VITALS: See Below PHYSICAL EXAMINATION: GENERAL: Sitting up in bed, alert, well appearing, well nourished, no distress, non-toxic EYE EXAM: normal conjunctiva. PERRL and EOM's grossly intact. OROPHARYNX: no exudate, no erythema, lips, buccal mucosa, and tongue normal and mucous membranes are moist NECK: supple, no nuchal rigidity, no adenopathy, non-tender LUNGS: Clear to auscultation. Normal chest wall mechanics HEART: no murmurs, regular rate, regular rhythm ABDOMEN: abdomen soft, non-tender, no masses, no rebound or guarding. BACK: Back is symmetrical on inspection and there is no deformity, no midline tenderness, no CVA tenderness. No midline TTP or step offs. 5/5 strength in b/l LEs that are neurovascularly intact. 2/4 patellar reflexes bilaterally. EHL strength 5/5 bilaterally. SKIN: no rashes and no bruising UPPER EXTREMITIES: upper extremities are grossly normal. LOWER EXTREMITIES: No pitting edema. NEURO EXAM: Normal sensorium, GCS 15, normal speech, no gross weakness of arms, no gross weakness of legs. No drift. Finger to nose intact. Gross sensation intact. MEDICAL DECISION MAKING: Differential diagnoses includes but not limited to ACS, stable vs unstable angina, dysrhythmia, viral URI, pneumonia, pericarditis, pneumothorax, costochondritis, MSK strain, PE, hypertensive emergency, psychological causes, esophageal reflux, gastritis, DDD,lumbar radiculopathy, acute cord compression, polyneuropathy In summary, this is a 79 year old female who presented with chest pain. Differential as above. Nursing notes and pertinent past medical records reviewed. Vital signs reviewed and the patient is hypertensive but otherwise afebrile and HDS. History and presentation revealed extensive cardiovascular history now with worsening pain over the last few weeks. Acutely worsened today now with extremity paresthesias. Patient's description of the pain as well as her history are concerning for possible aortic dissection. I am also concerned that this could be unstable angina and she has significant coronary artery disease as evidenced by prior cardiac catheterization notes. She had multivessel disease that required PCI. The patient is neurovascularly intact and she is only mildly hypertensive. She does not demonstrate acute CHF or shock like state. Will plan for labs and imaging. I did discuss extensively regarding patient's allergies to contrast which she is not sure. Diagnostics interpreted by me include EKG and cardiac monitoring as listed below: -Cardiac Monitoring: An order was placed for continuous cardiac monitoring. The monitor shows a rate of 50-60s with regular rhythm. -ECG: normal sinus rhythm at a ventricular rate of [address] segment changes to suggest STEMI. Intervals are within normal limits. Patient completed laboratory studies and imaging. CXR independently interpreted by me reveals no evidence of focal consolidation to suggest pna. No large pneumothorax or pleural effusion. Results independently interpreted by me are Normal troponin x 2. No significant leukocytosis or anemia. No electrolyte derangements or kidney dysfunction. The patient was managed with aspirin and sublingual nitroglycerin. given the patient's complaints of chest pain radiating to the back as well as extremity numbness, I am concerned for possible aortic dissection or AAA. She is hemodynamically stable. We proceeded with CTA imaging the following prophylactic steroids and Benadryl. Patient tolerated the contrast well. Patient had CTAs independently reviewed by me showing no evidence of aortic dissection or AAA. She does have heavy coronary artery calcification incidentally noted. I do feel her symptoms are exactly similar to prior. Do feel it is reasonable to admit the patient for telemetry monitoring and repeat echo. Ultimately, the decision was made to admit the patient for unstable angina with concerns for significant coronary artery disease. Given the patient symptoms have been ongoing over the last few weeks, as well as normal troponin levels without ischemic changes on EKG, heparin infusion and bolus was felt to be unnecessary as there may be more risks than benefits in this patient. It was recommended to admit this patient at 1440. I discussed the case with the hospitalist service via telephone/TigerText and they are agreeable to admit the patient to their services by Dr. Menchaca at 1643. Based on the above, including the patient's age, coexisting illnesses, labs, imaging, and exam findings the decision to treat as an inpatient. I discussed the patient with the hospitalist team who recommended admission to their services. They received the medications, treatments, interventions indicated above and their condition remain guarded. I discussed my findings with the patient and their family and they understand and agree with the treatment plan. All patient / family questions were answered to their satisfaction. Consults/Care Managements Discussions: Per MDM ER treatment provided: See above Procedures: none Critical Care: None The chart was completed utilizing [employer] Speech voice recognition software. Grammatical errors, random word insertions, pronoun errors, and incomplete sentences are an occasional consequence of this system due to software limitations, ambient noise, and hardware issues. Any formal questions or concerns about the content, text, or information contained within the body of this dictation should be directly addressed to the physician for clarification. Past Med/Surg History Problem List (Updated 01/11/25 @ 17:57 by Devin Oliva DO) Unstable angina (Acute) History of non-ST elevation myocardial infarction (NSTEMI) GERD (gastroesophageal reflux disease) S/P coronary artery stent placement (09/2019) x3 Osteopenia Prediabetes Hypertension History of bladder cancer (1999) recurrence 2011 Obesity CAD (coronary artery disease) Dyslipidemia Chronic sinusitis Fibromyalgia Arthritis Medical History Hematuria Elevated creatine kinase NSTEMI (non-ST elevated myocardial infarction) Kidney stones Surgical History S/P bladder tumor excision with fulguration (09/25/10) History of tonsillectomy History of cholecystectomy History of appendectomy Family History Father AAA (abdominal aortic aneurysm) Bladder cancer Kidney stones Mother Heart failure Aunt Breast cancer Sister Hypertension Other Ovarian cancer Denies family history of Prostate cancer Myocardial infarction Colorectal cancer Social History Smoking Status: Never smoker Second Hand Exposure: No; Do You Dip or Chew Tobacco: No; Hx Alcohol Use: No Hx Substance Use: No Preferred Language: Stateless Communication Ability: Effective Visual Impairment: No Limitations Hearing Ability: Use of Hearing Aid Head Doffer Required: No Beliefs That Will Affect Care: None marital status: Current Living Situation: Family current occupational status: retired Feels Safe at Home: Yes Childhood Exposure to Second-Hand Smoke: No Diet: regular Diet Comment: regular caffeine: Yes during the past year weight has: remained stable Dental Care, Regularly: Yes Physical Activity Frequency: Daily Seatbelt Use: always Sunscreen Use: Yes Assistive Devices: None Allergies Allergies Allergy/AdvReac Type Severity Reaction Status Date / Time clarithromycin [From Biaxin] Allergy Severe Throat Verified 11/05/24 10:00 closes shut piroxicam Allergy Severe Shortness Verified 11/05/24 10:00 of breath doxycycline Allergy Intermediate Thickening Verified 11/05/24 10:00 of the tongue Iodinated Contrast Media Allergy Intermediate Hives Verified 11/05/24 10:00 coal tar [From Laila Oil] Allergy Unknown Unknown Verified 11/05/24 10:00 diclofenac Allergy Unknown CAN'T Verified 11/05/24 10:00 REMEMBER latex Allergy Unknown CAN'T Verified 11/05/24 10:00 REMEMBER lisinopril Allergy Unknown Unknown Verified 11/05/24 10:00 nabumetone [From Relafen] Allergy Unknown Unknown Verified 11/05/24 10:00 promethazine Allergy Unknown Unknown Verified 11/05/24 10:00 ticagrelor [From Brilinta] Allergy Unknown Unknown Verified 11/05/24 10:00 oxycodone AdvReac Severe Chest Pain Verified 11/05/24 10:00 aspirin [From Percodan] AdvReac Intermediate Dizziness, Verified 11/05/24 10:00 vomiting cephalexin AdvReac Intermediate sores in Verified 11/05/24 10:00 mouth codeine AdvReac Intermediate Dizziness Verified 11/05/24 10:00 erythromycin base AdvReac Intermediate Muscle pain Verified 11/05/24 10:00 fexofenadine [From Rupal-D] AdvReac Intermediate Restless, Verified 11/05/24 10:00 cannot sleep, cramps ketoprofen [From Orudis] AdvReac Intermediate Vomiting, Verified 11/05/24 10:00 headache nitrofurantoin AdvReac Intermediate Muscle pain Verified 11/05/24 10:00 Penicillins AdvReac Intermediate Vomiting, Verified 11/05/24 10:00 dizziness propoxyphene AdvReac Intermediate Dizziness Verified 11/05/24 10:00 [From Darvocet-N 100] - giddy pseudoephedrine AdvReac Intermediate Restless, Verified 11/05/24 10:00 [From Rupal-D] cannot sleep, cramps Sulfa (Sulfonamide AdvReac Intermediate Vomiting Verified 11/05/24 10:00 Antibiotics) prednisone AdvReac Unknown Unknown Verified 11/05/24 10:00 Home Meds Home Medications Medication Instructions Recorded Confirmed omega-3 fatty acids 500 mg capsule 500 mg PO DAILY 12/21/19 01/11/25 cholecalciferol (vitamin D3) 125 125 mcg PO DAILY 05/11/20 01/11/25 mcg (5,000 unit) capsule vitamin B comp and C no.3 15 mg-10 1 cap PO DAILY 09/25/20 01/11/25 mg-50 mg-5 mg-300 mg capsule (B Complex Plus Vitamin C) acetaminophen 325 mg tablet 325 mg PO QID PRN Pain 04/19/24 01/11/25 (Tylenol) prasugrel HCl 10 mg tablet 10 mg PO DAILY 10/29/24 01/11/25 (Effient) Previous Rx's Medication Instructions Recorded aspirin 81 mg tablet,delayed 81 mg PO DAILY #90 tabs 12/31/23 release metoprolol tartrate 25 mg tablet 25 mg PO BID #180 tabs 04/19/24 famotidine 20 mg tablet (Pepcid) 20 mg PO BID PRN acid reflux #60 10/29/24 tabs cyclobenzaprine 5 mg tablet 5 mg PO HS PRN muscle spasm #20 11/05/24 tabs Results & Data (ED) Vital Signs Vital Signs - 24 hr 01/11/25 12:09 01/11/25 12:30 01/11/25 12:32 Temperature 36.8 C Temperature Source Oral Pulse Rate 61 59 L Pulse Rate [Apical] 58 L Pulse Rate from SpO2 Sensor Respiratory Rate 18 19 18 Respiratory Effort / Characteristics Non-Labored Spontaneous Non-Labored Spontaneous Respiratory Depth Normal Normal Respiratory Pattern Regular Blood Pressure 141/75 H 115/67 Blood Pressure [Right Arm] 115/67 Blood Pressure Mean 97 89 Blood Pressure Mean [Right Arm] 83 Blood Pressure Position [Right Arm] Lying Pulse Oximetry 91 94 94 Oxygen Delivery Method Room Air Room Air Sepsis Recent Fever Within 48 Hours No Sepsis New/Unexplained Change in Mental Status No Sepsis Action Taken by Nursing No Action Required 01/11/25 12:32 01/11/25 12:48 01/11/25 13:00 Temperature Temperature Source Pulse Rate 58 L 58 L 52 L Pulse Rate [Apical] Pulse Rate from SpO2 Sensor Respiratory Rate 18 16 Respiratory Effort / Characteristics Respiratory Depth Respiratory Pattern Blood Pressure 152/69 H Blood Pressure [Right Arm] Blood Pressure Mean 91 Blood Pressure Mean [Right Arm] Blood Pressure Position [Right Arm] Pulse Oximetry 94 94 Oxygen Delivery Method Room Air Sepsis Recent Fever Within 48 Hours Sepsis New/Unexplained Change in Mental Status Sepsis Action Taken by Nursing 01/11/25 14:22 01/11/25 14:30 01/11/25 15:10 Temperature Temperature Source Pulse Rate 64 57 L 58 L Pulse Rate [Apical] Pulse Rate from SpO2 Sensor Respiratory Rate 16 19 Respiratory Effort / Characteristics Respiratory Depth Respiratory Pattern Blood Pressure 156/67 H 154/74 H 160/87 H Blood Pressure [Right Arm] Blood Pressure Mean 83 82 125 Blood Pressure Mean [Right Arm] Blood Pressure Position [Right Arm] Pulse Oximetry 96 95 94 Oxygen Delivery Method Sepsis Recent Fever Within 48 Hours Sepsis New/Unexplained Change in Mental Status Sepsis Action Taken by Nursing 01/11/25 15:31 01/11/25 15:31 01/11/25 15:54 Temperature Temperature Source Pulse Rate 67 62 Pulse Rate [Apical] Pulse Rate from SpO2 Sensor 63 Respiratory Rate 18 16 Respiratory Effort / Characteristics Respiratory Depth Respiratory Pattern Blood Pressure 164/69 H 164/69 H Blood Pressure [Right Arm] Blood Pressure Mean 95 95 Blood Pressure Mean [Right Arm] Blood Pressure Position [Right Arm] Pulse Oximetry 94 94 Oxygen Delivery Method Sepsis Recent Fever Within 48 Hours Sepsis New/Unexplained Change in Mental Status Sepsis Action Taken by Nursing 01/11/25 17:23 Temperature Temperature Source Pulse Rate 65 Pulse Rate [Apical] Pulse Rate from SpO2 Sensor Respiratory Rate Respiratory Effort / Characteristics Respiratory Depth Respiratory Pattern Blood Pressure Blood Pressure [Right Arm] Blood Pressure Mean Blood Pressure Mean [Right Arm] Blood Pressure Position [Right Arm] Pulse Oximetry Oxygen Delivery Method Sepsis Recent Fever Within 48 Hours Sepsis New/Unexplained Change in Mental Status Sepsis Action Taken by Nursing Laboratory Data 01/11/25 12:14 01/11/25 12:14 Lab Results 01/11/25 01/11/25 Range/Units 12:14 14:18 WBC 7.76 (4.8-10.8) K/ul RBC 4.81 (4.20-5.40) M/uL Hgb 13.8 (12.0-16.0) g/dl Hct 41.4 (37.0-47.0) % MCV 86.1 (80.0-100.0) fL MCH 28.7 (25.0-34.0) pg MCHC 33.3 (32.0-36.0) g/dL RDW Std Deviation 41.4 (36.4-46.3) fL RDW Coeff of Marcelino 13.2 (11.5-14.5) % Plt Count 234 (130-400) K/uL MPV 9.3 L (9.4-12.4) fL Immature Gran % (Auto) 0.3 % Neut % (Auto) 68.5 % Lymph % (Auto) 23.8 % Millard % (Auto) 6.3 % Eos % (Auto) 0.6 % Baso % (Auto) 0.5 % Neut # (Auto) 5.31 (1.40-6.50) K/uL Lymph # (Auto) 1.85 (1.20-3.40) K/uL Millard # (Auto) 0.49 (0.11-0.59) K/uL Eos # (Auto) 0.05 (0.00-0.50) K/uL Baso # (Auto) 0.04 (0.00-0.20) K/uL Immature Gran # (Auto) 0.02 (0.01-0.20) K/uL PT 11.1 (9.0-12.0) Seconds INR 1.1 (0.9-1.1) APTT 27 (21-31) Seconds PTT Ratio 1.0 Sodium 140 (136-145) mmol/L Potassium 3.8 (3.5-5.1) mmol/L Chloride 106 (98-107) mmol/L Carbon Dioxide 26 (21-32) mmol/L Anion Gap 8 (3-11) BUN 17 (6-23) mg/dl Creatinine 0.73 (0.6-1.2) mg/dl Est Cr Clr Drug Dosing 67.6 ml/min eGFR 83.08 BUN/Creatinine Ratio 23.3 H (10-20) Glucose 110 H (70-99(Fasting)) mg/dl Calcium 9.1 (8.6-10.3) mg/dl Magnesium 2.0 (1.7-2.4) mg/dl Total Bilirubin 0.5 (0.2-1.0) mg/dl AST 19 (13-39) U/L ALT 16 (7-52) U/L Alkaline Phosphatase 62 (34-104) U/L Troponin I High Sens 3.8 4.4 (0-14) pg/ml Total Protein 7.0 (6.0-8.3) gm/dl Albumin 4.2 (3.4-5.0) gm/dl Globulin 2.8 (2.5-4.0) gm/dl Albumin/Globulin Ratio 1.5 (0.9-2) Lipase 38 (11-82) U/L Administered Medications Discontinued Medications Diphenhydramine HCl (Diphenhydramine 50 Mg/Ml Vial) 25 mg IV NOW STA Stop: 01/11/25 13:16 Last Admin: 01/11/25 13:19 Dose: 25 mg Documented By: LUDIN Ioversol (Optiray 320 125ml) 112 ml IV ONCE ONE Stop: 01/11/25 14:04 Last Admin: 01/11/25 14:03 Dose: 112 ml Documented By: DANNI Methylprednisolone (Methylprednisolone 125 Mg/2 Ml Vial) 60 mg IV NOW STA Stop: 01/11/25 13:16 Last Admin: 01/11/25 13:19 Dose: 60 mg Documented By: LUDIN Imaging Data Radiologist's Impression: Chest X-Ray 01/11/25 12:08 XR chest 1V portable CLINICAL HISTORY: Chest pain, nonspecific COMPARISON STUDY: 05/30/2024 FINDINGS: Stable mild cardiomegaly without pulmonary vascular congestion. No consolidation or pleural effusion. No pneumothorax. IMPRESSION: No acute findings. ACT 112: Negative or not required by law. Electronically signed by: Karri Renner M.D. 01/11/2025 12:49 PM Abdomen/Pelvis CTA 01/11/25 13:15 CT ANGIOGRAPHY OF THE ABDOMEN AND PELVIS CLINICAL HISTORY: Worsening chest pain radiating to back. Evaluate for abdominal aortic aneurysm. COMPARISON STUDY: CT of the abdomen and pelvis May 04, 2024. TECHNIQUE: Helical axial images of the abdomen and pelvis were obtained during arterial phase following intravenous injection of 112 cc of Optiray 320 IV. Sagittal and coronal reformats were viewed as well as maximal intensity projections on an independent 3-D workstation. A dose lowering technique was utilized adhering to the principles of ALARA. FINDINGS: Please note that the chest CT will be reported separately. The caliber of the abdominal aorta is normal. There is moderate atherosclerotic plaque within the abdominal aorta. There is mild stenosis at the origin the celiac axis and right renal artery. No severe stenoses are identified. There is no aneurysm within the abdomen or pelvis. No dissection is present. The common iliac, internal iliac, external iliac and common femoral arteries are patent. Arterial phase images of the liver, spleen and adrenal glands are unremarkable. There is no biliary or pancreatic ductal dilatation status post cholecystectomy. A 1.2 cm cystic lesion within the pancreatic neck favors a side IPMN. There is a fibroid left renal calculus. There are no ureteral calculi. No hydronephrosis. Several small right renal lesions likely represent a hyperdense cyst within correlating with unenhanced CT of April 24, 2022. No evidence for a bowel obstruction. Colonic diverticulosis. Evidence for acute diverticulitis. 3 cm left upper pelvic cystic lesion is unchanged. This favors a left ovarian cyst. Asymmetric prominence of the left aspect of the fundus is unchanged. This favors a fibroid. There is no lymphadenopathy. No fluid collections. No acute fractures. IMPRESSION: 1. No abdominal aortic aneurysm or abdominal aortic dissection. 2. Moderate atherosclerotic plaque within the abdominal aorta. No severe stenoses. 3. No acute process within the abdomen or pelvis. 4. Colonic diverticulosis. No evidence for acute diverticulitis. No bowel obstruction. ACT 112: Negative or not required by law. Electronically signed by: Olivier Allen M.D. 01/11/2025 2:35 PM Chest CTA 01/11/25 13:15 CT ANGIOGRAM OF THE CHEST COMBO CLINICAL HISTORY: Chest pain. Thoracic back pain. COMPARISON STUDY: Chest x-ray dated 01/11/2025. Abdominal CT dated 04/24/2022. TECHNIQUE: Before and following the IV administration of 112 cc of Optiray 320, CT angiogram of the chest was performed from the thoracic inlet to the upper abdomen utilizing the dissection protocol. Images are reviewed in the axial, sagittal, and coronal planes. 3-D MIPS images are created and assessed. IV contrast was administered without complication. A dose lowering technique was utilized adhering to the principles of ALARA. CT DOSE: 2638.17 mGy.cm FINDINGS: Thyroid: Imaged portions of the thyroid gland are normal in size and attenuation. Thoracic aorta: No intramural hematoma is seen on the unenhanced series. There is mild atherosclerotic calcification of the thoracic aorta, which is normal in caliber and demonstrates bovine variant arch anatomy. No dissection is seen. The arch vessels are widely patent. Pulmonary vasculature: The pulmonary trunk is normal in caliber. There are no filling defects identified in the main, lobar, or segmental pulmonary arteries to indicate pulmonary embolus. Heart: The heart is enlarged and without pericardial effusion. The coronary arteries are densely calcified. Lungs and pleural spaces: There is no airspace consolidation typical for pneumonia or pleural effusion. Scarring/atelectasis is noted at the lung bases. The trachea and central airways are clear. A 5 mm right lower lobe pulmonary nodule seen on image #157 and a 5 mm left basilar nodule on image #163 are unchanged dating back to at least 2022. A 3 mm left upper lobe pulmonary nodule is seen on image #45. Mediastinum: There is no mediastinal lymphadenopathy. Marcia: Clear. Axillae: There is no axillary lymphadenopathy. Upper abdomen: Partially visualized upper abdominal viscera is within normal limits. Skeletal structures: The skeletal structures are osteopenic. Mild degenerative change is seen throughout the thoracic spine. No lytic or blastic bony lesions are seen. IMPRESSION: 1. Unremarkable CT angiogram of the thoracic aorta. 2. There is no evidence of pulmonary embolus in the main, lobar, or segmental pulmonary arteries. 3. Cardiomegaly noting advanced coronary artery atherosclerosis. 4. There is no airspace consolidation or pleural effusion. 5. Additional findings as above. ACT 112: Negative or not required by law. Electronically signed by: Bryn Sheppard M.D. 01/11/2025 2:31 PM Discharge Plan Visit Data Chief Complaint: Chest Pain ED Provider: Devin Oliva Discharge Problem: Unstable angina Patient Disposition: Admitted As Inpatient Condition: Fair Forms Stand Alone Forms: My [employer] Prescriptions Prescriptions: No Action cholecalciferol (vitamin D3) 125 mcg (5,000 unit) capsule 125 mcg PO DAILY Patient Comments: 01/11- otc unable to verify omega-3 fatty acids 500 mg capsule 500 mg PO DAILY Patient Comments: 01/11- otc unable to verify B Complex Plus Vitamin C 15-70-82-5-300 mg capsule 1 cap PO DAILY Patient Comments: 01/11- otc unable to verify Rx Instructions: give with food (meal/snack) acetaminophen [Tylenol] 325 mg tablet 325 mg PO QID PRN (Reason: Pain) Patient Comments: 01/11- otc unable to verify metoprolol tartrate 25 mg tablet 25 mg PO BID Qty: 180 3RF aspirin 81 mg tablet,delayed release (DR/EC) 81 mg PO DAILY Qty: 90 3RF prasugrel HCl [Effient] 10 mg tablet 10 mg PO DAILY Rx Instructions: Approved Ref # [id number] only pays for 30 day supply at a a time famotidine [Pepcid] 20 mg tablet 20 mg PO BID PRN (Reason: acid reflux) Qty: 60 2RF Patient Comments: 01/11- otc/no fill history unable to verify cyclobenzaprine 5 mg tablet 5 mg PO HS PRN (Reason: muscle spasm) Qty: 20 0RF Patient Comments: 01/11-last filled 11/05 20 day supply #20 Referrals Referrals: Lynn Cooper DO [Primary Care Provider] -
--- NOTE | 2025-01-11 12:50 | XRay Report ---
XR chest 1V portable CLINICAL HISTORY: Chest pain, nonspecific COMPARISON STUDY: 05/30/2024 FINDINGS: Stable mild cardiomegaly without pulmonary vascular congestion. No consolidation or pleural effusion. No pneumothorax. IMPRESSION: No acute findings. ACT 112: Negative or not required by law. Electronically signed by: Karri Renner M.D. 01/11/2025 12:49 PM
[2025-01-11 12:57] LABS: Alanine Aminotransferase 16.0 U/L (7-52); Albumin Globulin Ratio 1.5 (0.9-2); Albumin Level 4.2 gm/dl (3.4-5.0); Alkaline Phosphatase 62.0 U/L (34-104); Anion Gap 8.0 (3-11); Bilirubin,Total 0.5 mg/dl (0.2-1.0); Blood Urea Nitrogen 17.0 mg/dl (6-23); Calcium 9.1 mg/dl (8.6-10.3); Carbon Dioxide 26.0 mmol/L (21-32); Chloride 106.0 mmol/L (98-107); Creatinine Clr Calc Pharmacy 67.6 ml/min; Globulin 2.8 gm/dl (2.5-4.0); Glucose 110.0 mg/dl (70-99(Fasting)); Lipase 38.0 U/L (11-82); Magnesium 2.0 mg/dl (1.7-2.4); Potassium 3.8 mmol/L (3.5-5.1); Sodium 140.0 mmol/L (136-145); Total Protein 7.0 gm/dl (6.0-8.3)
[2025-01-11 13:03] LABS: INR 1.1 (0.9-1.1); Partial Thromboplastin Time 27 Seconds (21-31); Prothrombin Time 11.1 Seconds (9.0-12.0)
[2025-01-11] MEDS: diphenhydrAMINE 50 MG/ML VIAL IV STA (13:19)
[2025-01-11] MEDS: OPTIRAY 320 125ml IV ONE (14:03)
--- NOTE | 2025-01-11 14:32 | CT Scan Report ---
CT ANGIOGRAM OF THE CHEST COMBO CLINICAL HISTORY: Chest pain. Thoracic back pain. COMPARISON STUDY: Chest x-ray dated 01/11/2025. Abdominal CT dated 04/24/2022. TECHNIQUE: Before and following the IV administration of 112 cc of Optiray 320, CT angiogram of the c hest was performed from the thoracic inlet to the upper abdomen utilizing the dissection protocol. Im ages are reviewed in the axial, sagittal, and coronal planes. 3-D MIPS images are created and assesse d. IV contrast was administered without complication. A dose lowering technique was utilized adherin g to the principles of ALARA. CT DOSE: 2638.17 mGy.cm FINDINGS: Thyroid: Imaged portions of the thyroid gland are normal in size and attenuation. Thoracic aorta: No intramural hematoma is seen on the unenhanced series. There is mild atheroscleroti c calcification of the thoracic aorta, which is normal in caliber and demonstrates bovine variant arc h anatomy. No dissection is seen. The arch vessels are widely patent. Pulmonary vasculature: The pulmonary trunk is normal in caliber. There are no filling defects identif ied in the main, lobar, or segmental pulmonary arteries to indicate pulmonary embolus. Heart: The heart is enlarged and without pericardial effusion. The coronary arteries are densely calc ified. Lungs and pleural spaces: There is no airspace consolidation typical for pneumonia or pleural effusio n. Scarring/atelectasis is noted at the lung bases. The trachea and central airways are clear. A 5 mm right lower lobe pulmonary nodule seen on image #157 and a 5 mm left basilar nodule on image #163 ar e unchanged dating back to at least 2022. A 3 mm left upper lobe pulmonary nodule is seen on image #4 5. Mediastinum: There is no mediastinal lymphadenopathy. Marcia: Clear. Axillae: There is no axillary lymphadenopathy. Upper abdomen: Partially visualized upper abdominal viscera is within normal limits. Skeletal structures: The skeletal structures are osteopenic. Mild degenerative change is seen through out the thoracic spine. No lytic or blastic bony lesions are seen. IMPRESSION: 1. Unremarkable CT angiogram of the thoracic aorta. 2. There is no evidence of pulmonary embolus in the main, lobar, or segmental pulmonary arteries. 3. Cardiomegaly noting advanced coronary artery atherosclerosis. 4. There is no airspace consolidation or pleural effusion. 5. Additional findings as above. ACT 112: Negative or not required by law. Electronically signed by: Bryn Sheppard M.D. 01/11/2025 2:31 PM
--- NOTE | 2025-01-11 14:37 | CT Scan Report ---
CT ANGIOGRAPHY OF THE ABDOMEN AND PELVIS CLINICAL HISTORY: Worsening chest pain radiating to back. Evaluate for abdominal aortic aneurysm. COMPARISON STUDY: CT of the abdomen and pelvis May 04, 2024. TECHNIQUE: Helical axial images of the abdomen and pelvis were obtained during arterial phase followi ng intravenous injection of 112 cc of Optiray 320 IV. Sagittal and coronal reformats were viewed as w ell as maximal intensity projections on an independent 3-D workstation. A dose lowering technique was utilized adhering to the principles of ALARA. FINDINGS: Please note that the chest CT will be reported separately. The caliber of the abdominal aor ta is normal. There is moderate atherosclerotic plaque within the abdominal aorta. There is mild sten osis at the origin the celiac axis and right renal artery. No severe stenoses are identified. There i s no aneurysm within the abdomen or pelvis. No dissection is present. The common iliac, internal mary c, external iliac and common femoral arteries are patent. Arterial phase images of the liver, spleen and adrenal glands are unremarkable. There is no biliary or pancreatic ductal dilatation status post cholecystectomy. A 1.2 cm cystic lesion within the pancreatic neck favors a side IPMN. There is a fib roid left renal calculus. There are no ureteral calculi. No hydronephrosis. Several small right renal lesions likely represent a hyperdense cyst within correlating with unenhanced CT of April 24, 2022 . No evidence for a bowel obstruction. Colonic diverticulosis. Evidence for acute diverticulitis. 3 c m left upper pelvic cystic lesion is unchanged. This favors a left ovarian cyst. Asymmetric prominenc e of the left aspect of the fundus is unchanged. This favors a fibroid. There is no lymphadenopathy. No fluid collections. No acute fractures. IMPRESSION: 1. No abdominal aortic aneurysm or abdominal aortic dissection. 2. Moderate atherosclerotic plaque within the abdominal aorta. No severe stenoses. 3. No acute process within the abdomen or pelvis. 4. Colonic diverticulosis. No evidence for acute diverticulitis. No bowel obstruction. ACT 112: Negative or not required by law. Electronically signed by: Olivier Allen M.D. 01/11/2025 2:35 PM
[2025-01-11] MEDS ORDERED: NITROGLYCERIN SL 0.4 MG/TAB TAB SL PRN (18:27)
--- NOTE | 2025-01-11 18:29 | History & Physical Report ---
Date of Service January 11, 2025 Assessment & Plan (1) Chest pain: (2) History of non-ST elevation myocardial infarction (NSTEMI): (3) GERD (gastroesophageal reflux disease): (4) CAD (coronary artery disease): (5) Obesity: (6) History of bladder cancer: (7) Hypertension: (8) Dyslipidemia: Plan 79 yr old F with PMHx of chronic right lower back pain, CAD s/p NSTEMI 09/2019 s/p PCI x1, intolerant to statins, HLD, HTN, bladder ca with recurrence in 2010 (follows with [facility]), fibromyalgia, chronic right lower back pain, hip pain with bursitis, arthritis comes to the hospital for the evaluation of chest discomfort. #Chest pain - could be costochondritis but r/o ACS - admit obs with telemetry - trend trop, initial trop negative - EKG w/o evidence of acute ischemia - cont aspirin and prasugrel - check ECHO - fasting lipid panel (statin intolerant) and A1c - SL nitro PRN #Back pain #Numbness / tingling - CTA chest / Abd / Pelvis neg for dissection - given h/o bladder ca with recurrence, would benefit with dedicated lumbar spine - currently no red flags, so can wait a little as pt just had IV dye #HTN #HLD - cont metoprolol - statin intolerant #Code status: DNR / DNI #Dispo- obs #DVT ppx- SCDs, if prolonged stay, then pharmacologic agents to be considered History of Present Illness Chief Complaint: Chest pain Primary Care Provider: Lynn Cooper, DO 79 yr old F with PMHx of chronic right lower back pain, CAD s/p NSTEMI 09/2019 s/p PCI x1, intolerant to statins, HLD, HTN, bladder ca with recurrence in 2010 (follows with [facility]), fibromyalgia, chronic right lower back pain, hip pain with bursitis, arthritis comes to the hospital for the evaluation of chest discomfort. This started about 1 week ago. It is on the chest wall and is worse when you press on the chest. She notes that the chest pain was the same kind of pain she had when she had the heart attack. The only difference is that she does not have any trouble breathing like she did then. She also reports pain between her shoulder blade that has been going on longer than the chest wall pain. She also have b/l upper and lower extremity numbness that started today. This is what brought her here. Given her concern, she had cardiac workup and aortic dissection workup in the ED. Both of which has been negative thus far. However, given her h/o CAD / NSTEMI, hospitalist consulted for chest pain r/o Allergies Allergy/AdvReac Type Severity Reaction Status Date / Time clarithromycin [From Biaxin] Allergy Severe Throat Verified 11/05/24 10:00 closes shut piroxicam Allergy Severe Shortness Verified 11/05/24 10:00 of breath doxycycline Allergy Intermediate Thickening Verified 11/05/24 10:00 of the tongue Iodinated Contrast Media Allergy Intermediate Hives Verified 11/05/24 10:00 coal tar [From Laila Oil] Allergy Unknown Unknown Verified 11/05/24 10:00 diclofenac Allergy Unknown CAN'T Verified 11/05/24 10:00 REMEMBER latex Allergy Unknown CAN'T Verified 11/05/24 10:00 REMEMBER lisinopril Allergy Unknown Unknown Verified 11/05/24 10:00 nabumetone [From Relafen] Allergy Unknown Unknown Verified 11/05/24 10:00 promethazine Allergy Unknown Unknown Verified 11/05/24 10:00 ticagrelor [From Brilinta] Allergy Unknown Unknown Verified 11/05/24 10:00 oxycodone AdvReac Severe Chest Pain Verified 11/05/24 10:00 aspirin [From Percodan] AdvReac Intermediate Dizziness, Verified 11/05/24 10:00 vomiting cephalexin AdvReac Intermediate sores in Verified 11/05/24 10:00 mouth codeine AdvReac Intermediate Dizziness Verified 11/05/24 10:00 erythromycin base AdvReac Intermediate Muscle pain Verified 11/05/24 10:00 fexofenadine [From Rupal-D] AdvReac Intermediate Restless, Verified 11/05/24 10:00 cannot sleep, cramps ketoprofen [From Orudis] AdvReac Intermediate Vomiting, Verified 11/05/24 10:00 headache nitrofurantoin AdvReac Intermediate Muscle pain Verified 11/05/24 10:00 Penicillins AdvReac Intermediate Vomiting, Verified 11/05/24 10:00 dizziness propoxyphene AdvReac Intermediate Dizziness Verified 11/05/24 10:00 [From Darvocet-N 100] - giddy pseudoephedrine AdvReac Intermediate Restless, Verified 11/05/24 10:00 [From Rupal-Jeanne] cannot sleep, cramps Sulfa (Sulfonamide AdvReac Intermediate Vomiting Verified 11/05/24 10:00 Antibiotics) prednisone AdvReac Unknown Unknown Verified 11/05/24 10:00 Home Medications Medication Instructions Recorded Confirmed Type omega-3 fatty acids 500 mg capsule 500 mg PO DAILY 12/21/19 01/11/25 History cholecalciferol (vitamin D3) 125 125 mcg PO DAILY 05/11/20 01/11/25 History mcg (5,000 unit) capsule vitamin B comp and C no.3 15 mg-10 1 cap PO DAILY 09/25/20 01/11/25 History mg-50 mg-5 mg-300 mg capsule (B Complex Plus Vitamin C) aspirin 81 mg tablet,delayed 81 mg PO DAILY #90 tabs 12/31/23 01/11/25 Rx release acetaminophen 325 mg tablet 325 mg PO QID PRN Pain 04/19/24 01/11/25 History (Tylenol) metoprolol tartrate 25 mg tablet 25 mg PO BID #180 tabs 04/19/24 01/11/25 Rx famotidine 20 mg tablet (Pepcid) 20 mg PO BID PRN acid reflux #60 10/29/24 01/11/25 Rx tabs prasugrel HCl 10 mg tablet 10 mg PO DAILY 10/29/24 01/11/25 History (Effient) cyclobenzaprine 5 mg tablet 5 mg PO HS PRN muscle spasm #20 11/05/24 01/11/25 Rx tabs Past Med/Surg History Problem List (Updated 01/11/25 @ 17:57 by Devin Oliva DO) Unstable angina (Acute) History of non-ST elevation myocardial infarction (NSTEMI) GERD (gastroesophageal reflux disease) S/P coronary artery stent placement (09/2019) x3 Osteopenia Prediabetes Hypertension History of bladder cancer (1999) recurrence 2011 Obesity CAD (coronary artery disease) Dyslipidemia Chronic sinusitis Fibromyalgia Arthritis Medical History Hematuria Elevated creatine kinase NSTEMI (non-ST elevated myocardial infarction) Kidney stones Surgical History S/P bladder tumor excision with fulguration (09/25/10) History of tonsillectomy History of cholecystectomy History of appendectomy Family History Father AAA (abdominal aortic aneurysm) Bladder cancer Kidney stones Mother Heart failure Aunt Breast cancer Sister Hypertension Other Ovarian cancer Denies family history of Prostate cancer Myocardial infarction Colorectal cancer Social History Smoking Status: Never smoker Second Hand Exposure: No; Do You Dip or Chew Tobacco: No; Hx Alcohol Use: No Hx Substance Use: No Preferred Language: Guinean Communication Ability: Effective Visual Impairment: No Limitations Hearing Ability: Use of Hearing Aid Tailor Apprentice Required: No Beliefs That Will Affect Care: None marital status: Current Living Situation: Family current occupational status: retired Feels Safe at Home: Yes Childhood Exposure to Second-Hand Smoke: No Diet: regular Diet Comment: regular caffeine: Yes during the past year weight has: remained stable Dental Care, Regularly: Yes Physical Activity Frequency: Daily Seatbelt Use: always Sunscreen Use: Yes Assistive Devices: None Review of Systems Review of Systems: Comprehensive ROS completed and is otherwise negative. Physical Exam Physical Exam: Gen: no acute distress, lying in bed comfortable HEENT: NC/AT, MMM Lungs: nonlabored breathing, CTAB CVS: s1s2nl, RRR, right chest wall pain reproducible with palpation Abd: nl bowel sounds, soft, NT / ND : no chris Ext: no edema Neuro: AAOx3 Psych: calm, cooperative Results & Data Results & Data Vital Signs (Past 12 Hours) Vital Signs Temp Pulse Pulse Resp BP BP Pulse Ox 01/11/25 17:23 65 01/11/25 15:54 62 16 94 01/11/25 15:31 164/69 H 01/11/25 15:31 67 18 164/69 H 94 01/11/25 15:10 58 L 160/87 H 94 01/11/25 14:30 57 L 19 154/74 H 95 01/11/25 14:22 64 16 156/67 H 96 01/11/25 13:00 52 L 16 152/69 H 94 01/11/25 12:48 58 L 01/11/25 12:32 58 L 18 94 01/11/25 12:32 58 L 18 115/67 94 01/11/25 12:30 59 L 19 115/67 94 01/11/25 12:09 36.8 C 61 18 141/75 H 91 O2 Del Method 01/11/25 17:23 01/11/25 15:54 01/11/25 15:31 01/11/25 15:31 01/11/25 15:10 01/11/25 14:30 01/11/25 14:22 01/11/25 13:00 01/11/25 12:48 01/11/25 12:32 Room Air 01/11/25 12:32 Room Air 01/11/25 12:30 01/11/25 12:09 Room Air PG Care Time/CCT Total # of Minutes Spent Total Time Spent with Patient: Total time spent is greater than 50% in coordination of care (as documented) at patient's floor/unit and/or counseling patient: Coding Level of Care Code 32754 INT INP/OBS CARE 375MIN Diagnoses Chest pain R07.9 Chest pain type: unspecified History of non-ST elevation myocardial infarction (NSTEMI) I25.2 GERD (gastroesophageal reflux disease) K21.9 CAD (coronary artery disease) I25.10 Associated angina: unspecified whether angina present Coronary Disease-Associated Artery/Lesion type: [place] artery [place] vs. transplanted heart: [place] heart Obesity E66.9 History of bladder cancer Z85.51 Primary hypertension I10 Hypertension type: primary hypertension Dyslipidemia E78.5 (1) Chest pain Chest pain type: unspecified Qualified Code(s): R07.9 - Chest pain, unspecified (4) CAD (coronary artery disease) Associated angina: unspecified whether angina present Coronary Disease- Associated Artery/Lesion type: [place] artery [place] vs. transplanted heart: [place] heart Qualified Code(s): I25.10 - Atherosclerotic heart disease of [place] coronary artery without angina pectoris (7) Hypertension Hypertension type: primary hypertension Qualified Code(s): I10 - Essential (primary) hypertension
[2025-01-11] MEDS ORDERED: ACETAMINOPHEN 325 MG TAB PO PRN (20:27)
[2025-01-11] MEDS ORDERED: POLYETHYLENE (MIRALAX) 17 GM PACK PO PRN (20:27)
[2025-01-11] MEDS ORDERED: FAMOTIDINE 20 MG TAB PO PRN (20:27)
[2025-01-11] MEDS ORDERED: CYCLOBENZAPRINE HCL 5 MG TAB PO PRN (20:27)
[2025-01-11] MEDS ORDERED: MELATONIN 3 MG TAB PO PRN (20:27)
[2025-01-11] MEDS: METOPROLOL TARTRATE 25 MG TAB PO SCH (22:36)
[2025-01-12 06:29] LABS: Hematocrit (blood only) 40.9 % (37.0-47.0); Hemoglobin 13.1 g/dl (12.0-16.0); Immature Granulocytes # (auto) 0.05 K/uL (0.01-0.20); Immature Granulocytes % (auto) 0.6 %; Mean Corpuscular Hemoglobin 27.5 pg (25.0-34.0); Mean Corpuscular Volume 85.9 fL (80.0-100.0); Platelet Count 225 K/uL (130-400); RDW Standard Deviation 41.5 fL (36.4-46.3); Red Blood Count 4.76 M/uL (4.20-5.40); White Blood Count 8.02 K/ul (4.8-10.8)
[2025-01-12 06:58] LABS: Anion Gap 8.0 (3-11); Blood Urea Nitrogen 16.0 mg/dl (6-23); Calcium 8.9 mg/dl (8.6-10.3); Carbon Dioxide 26.0 mmol/L (21-32); Chloride 105.0 mmol/L (98-107); Cholesterol 282.0 mg/dl (0-200); Creatinine Clr Calc Pharmacy 82.3 ml/min; Glucose 108.0 mg/dl (70-99(Fasting)); HDL Cholesterol 44.0 mg/dl; Potassium 3.9 mmol/L (3.5-5.1); Sodium 139.0 mmol/L (136-145); Triglycerides 112.0 mg/dl (0-150)
[2025-01-12 07:46] LABS: Hemoglobin A1C 5.7 % (4.5-5.6)
[2025-01-12] MEDS: CHOLECALCIFEROL 125 MCG (5,000 UNITS) TAB PO SCH (07:49)
[2025-01-12] MEDS: ASPIRIN 81 MG ECTAB PO SCH (07:49)
[2025-01-12] MEDS: OMEGA-3 (PURIFIED FISH OIL) 1 GM CAP PO SCH (07:50)
[2025-01-12] MEDS: PRASugrel TAB 10 MG TAB PO SCH (07:50)
--- NOTE | 2025-01-12 14:05 | XCELERA ---
[id number]
--- NOTE | 2025-01-12 15:51 | Discharge Summary ---
Discharge Summary Date of Service January 12, 2025 Principal Dx & Hospital Course #1 = Principal Diagnosis (1) Chest pain: Asymptomatic on discharge date 01/12/2025. I surmise that patient suffers from costochondritis as patient concedes to feeling chest discomfort on palpation of chest, which has no overt evidence of ecchymosis, petechiae, hematoma, erythema, edema, induration, warmth, crepitus, fluctuance, discharge (sanguineous, serous, suppurative), ulceration, malodor, or lymphangitic streaking on discharge date 01/12/2025. Patient ruled out for acute NSTEMI with serial troponins negative: cf., troponin-I #1 4.4 pg/mL (01/11/2025, 2:18pm). cf., troponin-I #2 3.8 pg/mL (01/11/2025, 8:47pm). cf., troponin-I #3 3.2 pg/mL (01/12/2025, 5:39am). cf., EKG (01/11/2025, 12:09pm): NSR @ 61, CA 166, QTC 390, no acute ST depressions/elevations, TWI, or q waves (by my review). cf., TTE (01/12/2025, 6:40am): 1. LVEF 55-60%. Normal LV wall thickness. LV wall motion normal. 2. RV size and systolic function normal as assessed by tricuspid annular plane systolic excursion (TAPSE)(normal > 1.5 cm). 3. LA/RA size normal. No ASD detected. PFO not assessed. 4. No significant . No significant AR. 5. PV not well visualized. 6. No MS. Trace MR. 7. Mild TR. 8. Aortic root normal size. 9. No pericardial effusion. 10.Grade I LV diastolic dysfunction. 11.Compared to prior (10/06/2019, 7:16am TTE, which demonstrated hypokinesis of mid-anteroseptum and apical akinesis, as per CARDS Dr. Alejandro Almodovar), today's TTE demonstrates improvement of prior wall motion abnormality.). (as per CARDS Dr. Heriberto Otto). (2) History of non-ST elevation myocardial infarction (NSTEMI): Continue secondary prophylaxis against CAD utilizing home-scheduled ASA 81mg PO daily, prasugrel 10mg PO daily, and omega 3 fatty acids 500mg PO daily on hospital discharge home on 01/12/2025. (3) GERD (gastroesophageal reflux disease): Asymptomatic on home-scheduled famotidine 20mg PO bid prn GERD on hospital discharge home on 01/12/2025. (4) CAD (coronary artery disease): Continue secondary prophylaxis against CAD utilizing home-scheduled ASA 81mg PO daily, prasugrel 10mg PO daily, and omega 3 fatty acids 500mg PO daily on hospital discharge home on 01/12/2025. (5) Obesity: Obesity with BMI 33.8 (height 162.6 cm; weight 89.3 kg). (6) History of bladder cancer: Diagnosed in 2010. Asymptomatic. No recurrence as per patient's report. (7) Hypertension: Well-controlled with discharge BP 149/75 (01/12/2025, 2:11pm) on home-scheduled metoprolol tartrate 25mg PO bid on hospital discharge home on 01/12/2025. (8) Dyslipidemia: Asymptomatic on home-scheduled omega 3 fatty acids 500mg PO daily on hospital discharge home on 01/12/2025. (9) Chronic diastolic (congestive) heart failure: Not acute exacerbation of chronic diastolic CHF with preserved LVEF 55-60% and grade I LV diastolic dysfunction (as noted on 01/12/2025, 6:40am TTE, CARDS Dr. Heriberto Otto). Hence, patient received medical management of chronic diastolic CHF by adhering to a 2 gram Na diet, daily weights, strict I/O, and home-scheduled metoprolol tartrate 25mg PO bid while in [facility]. Patient will continue this same regimen on hospital discharge back to her home on 01/12/2025. Plan 79 yr old F with PMHx of chronic right lower back pain, CAD s/p NSTEMI 09/2019 s/p PCI x1, intolerant to statins, HLD, HTN, bladder ca with recurrence in 2010 (follows with [facility]), fibromyalgia, chronic right lower back pain, hip pain with bursitis, arthritis comes to the hospital for the evaluation of chest discomfort. #Chest pain - could be costochondritis but r/o ACS - admit obs with telemetry - trend trop, initial trop negative - EKG w/o evidence of acute ischemia - cont aspirin and prasugrel - check ECHO - fasting lipid panel (statin intolerant) and A1c - SL nitro PRN #Back pain #Numbness / tingling - CTA chest / Abd / Pelvis neg for dissection - given h/o bladder ca with recurrence, would benefit with dedicated lumbar spine - currently no red flags, so can wait a little as pt just had IV dye #HTN #HLD - cont metoprolol - statin intolerant #Code status: DNR / DNI #Dispo- obs #DVT ppx- SCDs, if prolonged stay, then pharmacologic agents to be considered Admission HPI Per Admitting Provider 79 yr old F with PMHx of chronic right lower back pain, CAD s/p NSTEMI 09/2019 s/p PCI x1, intolerant to statins, HLD, HTN, bladder ca with recurrence in 2010 (follows with [facility]), fibromyalgia, chronic right lower back pain, hip pain with bursitis, arthritis comes to the hospital for the evaluation of chest discomfort. This started about 1 week ago. It is on the chest wall and is worse when you press on the chest. She notes that the chest pain was the same kind of pain she had when she had the heart attack. The only difference is that she does not have any trouble breathing like she did then. She also reports pain between her shoulder blade that has been going on longer than the chest wall pain. She also have b/l upper and lower extremity numbness that started today. This is what brought her here. Given her concern, she had cardiac workup and aortic dissection workup in the ED. Both of which has been negative thus far. However, given her h/o CAD / NSTEMI, hospitalist consulted for chest pain r/o Discharge Exam Constitutional General: Comfortable, cooperative, coherent. Wide awake and alert. Not confused, lethargic, or obtunded. Patient speaks in complete, fluent, and articulate sentences without pause, interruption, cough, or wheeze. HEENT: NC/AT. EOMI. PERRL. No nystagmus, gaze paresis, anisocoria, miosis, mydriasis, chemosis, hyphema, scleral injection, conjunctivitis, or pterygium. No otorrhea. No rhinorrhea. Neck: Supple, no stridor, bruit, or goiter. Jugular venous pressure 5cm above the sternal angle of Ubal[place], which is typically 5 cm above the right atrium. Lymph: No anterior/posterior cervical lymphadenopathy, supraclavicular/infraclavicular lymphadenopathy, axilla/epitrochlear/inguinal lymphadenopathy. Chest: Symmetric rise and fall with respirations. Non-tender to palpation. Heart: RRR, S1 and S2. No S3 or S4 summation gallop. No tripartite friction rub. Grade II/ early systolic murmur @ LLSB without radiation to the carotids, axilla, or back, and which remains invariant in regards to the respiratory cycle. Lungs: Clear to auscultation and percussion. No audible expiratory wheeze, egophony, pectoriloquy, increase in tactile fremitus, or flatness/dullness to percussion at the bases. Abd: Soft, non-tender, non-distended. Bowel sounds auscultated in all 4 quadrants. No rebound, guarding, Gustafson's sign, or organomegaly. Ext: No clubbing, cyanosis, or edema. 2+ pedal pulses bilaterally. Skin: No decubitus ulcer, exanthem, or enanthem. Neuro: No tremors, tics, or myoclonus. DTR+. Urology: No chris catheter. No urethral discharge. Discharge Plan Discharge Items Patient Disposition: Home - Self-Care Reason For Visit: CHEST PAIN Discharge Diagnosis: Chest pain, s/p SIVAN Condition on Discharge: Fair Activity: Resume your previous activity Lifting: Gradually increase as tolerated Bathing: No limitations Exercise/Sports: Gradually increase as tolerated Driving/Machine Use: No limitations Weightbearing: Full weightbearing Non-emergency contact: Primary Care Provider Call non-emergency contact if: you have any medication questions Follow-up/Referrals: Lynn Cooper DO [Primary Care Provider] - 01/26/25 9:20 am Diet: Heart Healthy Addtl Attending Provider Instructions: See your PCP Dr. Lynn Cooper within 5-7 days of hospital discharge. Pending Studies at Discharge: No Stand-Alone Forms: My [facility] Dailyevent, Smoking Cessation Medications and DC Order Prescriptions: Continued cholecalciferol (vitamin D3) 125 mcg (5,000 unit) capsule 125 mcg PO DAILY Patient Comments: 01/11- otc unable to verify omega-3 fatty acids 500 mg capsule 500 mg PO DAILY Patient Comments: 01/11- otc unable to verify B Complex Plus Vitamin C [id number] mg capsule 1 cap PO DAILY Patient Comments: 01/11- otc unable to verify Rx Instructions: give with food (meal/snack) acetaminophen [Tylenol] 325 mg tablet 325 mg PO QID PRN (Reason: Pain) Patient Comments: 01/11- otc unable to verify metoprolol tartrate 25 mg tablet 25 mg PO BID Qty: 180 3RF aspirin 81 mg tablet,delayed release (DR/EC) 81 mg PO DAILY Qty: 90 3RF prasugrel HCl [Effient] 10 mg tablet 10 mg PO DAILY Rx Instructions: Approved Ref # [id number] only pays for 30 day supply at a a time famotidine [Pepcid] 20 mg tablet 20 mg PO BID PRN (Reason: acid reflux) Qty: 60 2RF Patient Comments: 01/11- otc/no fill history unable to verify cyclobenzaprine 5 mg tablet 5 mg PO HS PRN (Reason: muscle spasm) Qty: 20 0RF Patient Comments: 01/11-last filled 11/05 20 day supply #20 Discharge Orders: Discharge Order (Routine); Ordered 01/12/25 Ordered By: Benton Montez Admission Data Admit Date/Time: 01/11/25 18:06 Attending Provider: Benton Montez Admit Provider: Mena Menchaca Primary Care Provider: Lynn Cooper Other Providers: Mena Menchaca Hospital Stay Data Consultations 01/11/25 16:42 ED Decision to Admit Stat Diagnostic Imagining Performed 01/11/25 13:15 CTA abdomen pelvis w con [CT angio abdomen pelvis w con] Stat CTA chest dissec wo/w con [CT angio chest dissec wo/w con] Stat Pending Results Patient Have Any Pending Studies at Discharge: No Discharge Instructions Given to Patient (Per Discharging Provider) See your PCP Dr. Lynn Cooper within 5-7 days of hospital discharge. Total Time Total Time Spent Total Time Spent (In Minutes): 35 minutes. Of this time period, 19 minutes were spent in coordinating patient's discharge. Coding Level of Care Code 09901 INP/OBS DISCH >30 MIN Diagnoses Chest pain R07.9 Chest pain type: unspecified History of non-ST elevation myocardial infarction (NSTEMI) I25.2 GERD (gastroesophageal reflux disease) K21.9 CAD (coronary artery disease) I25.10 Associated angina: unspecified whether angina present Coronary Disease-Associated Artery/Lesion type: [place] artery [place] vs. transplanted heart: [place] heart Obesity E66.9 History of bladder cancer Z85.51 Primary hypertension I10 Hypertension type: primary hypertension Dyslipidemia E78.5 Chronic diastolic (congestive) heart failure I50.32
[2025-01-12 16:20] VITALS: PULSE 59; RESP 20; TEMP 97.7; O2SAT 94
[2025-01-12 16:29] VITALS: BP 165/83
== END 2025-01-12 17:35 | disposition home or self-care (01) ==
LOC: SUATTDRO → 2N 12:02 → ED 12:02 → SUATTDRO 18:06 → 2N 20:09